=== PATIENT | male | born 1975 | race Caucasian/White ===

== ENCOUNTER 2018-06-08 07:45 | Outpatient (CLI) | payer BC ==
--- NOTE | 2018-06-08 10:22 | HP ---
DATE OF SERVICE: 06/08/2018 HISTORY OF PRESENT ILLNESS: Mr. Alexx Lopez is a very pleasant 43-year-old gentleman who pres ents to the Wound Center for evaluation of a wound of the right lateral plantar midfoot. The patient states that the ulceration has been present for approximately 1 month. He states that he is unsure as to what precipitated the development of the ulceration. The patient states he presented to [facility] last week with malaise. He states that at this time he was given 6-8 doses of IV antibiotic s. The patient states that plain films were obtained which showed no evidence of osteomyelitis. The patient is now taking doxycycline, ciprofloxacin and Flagyl as per Dr. Luis Sequeira. At the time o f the patient's visit at [facility], he was referred to the Wound Center for further evaluation a nd treatment. PAST MEDICAL HISTORY: Diabetes mellitus. PAST SURGICAL HISTORY: Negative. MEDICATIONS: 1. Metformin. 2. Tradjenta. 3. Tylenol. 4. Doxycycline. 5. Ciprofloxacin. 6. Flagyl. ALLERGIES: PENICILLIN. SOCIAL HISTORY: Negative for tobacco or ETOH use. FAMILY HISTORY: Significant for diabetes mellitus. The patient states that his father was diagnosed with diabetes mellitus. PHYSICAL EXAMINATION: VITAL SIGNS: Temperature 98.0, pulse 82, respirations 17, blood pressure 153/102. GENERAL: A 43-year-old gentleman sitting on chair in examination room in no acute distress. HEENT: Normocephalic, atraumatic. NECK: No nuchal rigidity. CHEST: Clear to auscultation. CARDIAC: Regular rate and rhythm. ABDOMEN: Soft. EXTREMITIES: An ulceration over the right lateral plantar foot is present which measures approximate ly 0.7 x 0.4 cm. Necrotic and nonviable tissue present within the wound margins was debrided with an excisional full-thickness debridement with the use of scissors. Callus desiccated tissue and underm ining associated with the wound were also eliminated with the use of scissors. No purulent drainage is associated with the wound. Erythema of the skin surrounding the wound is present. No maceration of the skin of the periwound is noted. A dorsalis pedis pulse and posterior tibial pulse are both pa lpable on the right. No significant edema of the right foot is present on exam today. NEUROLOGIC: Grossly nonfocal. ASSESSMENT AND PLAN: 1. Ulceration of plantar surface of right lateral midfoot as described above. Dressing changes of X eroform gauze, 4 x 4's, an ABD and Kerlix will be initiated today. These dressing changes are to be performed on a daily basis after cleansing and irrigation. Arrangements will also be made for MRI of the right foot to look for findings suggestive of osteomyelitis. The patient is to continue p.o. an tibiotics as previously prescribed. The importance of offloading has been discussed with the patient . He states he will obtain a knee scooter for proper offloading of the plantar surface of the right foot. I will see Mr. Lopez again in 1 week. The patient understands and is in agreement with the preceding treatment plan. 2. Diabetes mellitus. Accu-Cheks will be obtained at the time of the patient's clinic visits. The patient has been told that for optimal wound healing, his blood glucoses should remain below 150.
[2018-06-08] MEDS ORDERED: Sodium Chloride 0.9% 15 ML NEB ONE (15:54)
== END 2018-06-08 07:46 | disposition home or self-care (01) ==
LOC: WCC 07:45
PROVIDERS: ATTEND Family Medicine
DX: E11.621 Type 2 diabetes mellitus with foot ulcer (principal); L97.419 Non-pressure chronic ulcer of right heel and midfoot with unspecified severity
CPT/HCPCS: 11042; 36416; 99203; A4218; G0463

== ENCOUNTER 2018-06-15 08:11 | Outpatient (CLI) | payer BC ==
[2018-06-15] MEDS ORDERED: Sodium Chloride 0.9% 15 ML NEB ONE (08:59)
--- NOTE | 2018-06-15 09:20 | PRG ---
DATE OF SERVICE: 06/15/2018 HISTORY: Mr. Alexx Lopez is a very pleasant 43-year-old gentleman, who presents to the Wound Center for evaluation of a wound of the right lateral plantar midfoot. The patient stated at the conor e of his initial presentation to the Wound Center that the ulceration had been present for approximat deja 1 month. He stated that he was unsure as to what precipitated the development of the ulceration. The patient stated that he presented to [facility] approximately 1 week prior to being seen in the Wound Center with malaise. He stated that, at this time, he was given 6-8 doses of IV antibiotic s. The patient stated that plain films were obtained, which showed no evidence of osteomyelitis. Th e patient was placed on doxycycline, ciprofloxacin, and Flagyl as per Dr. Luis Sequeira, which he sta elías he has completed taking as prescribed. At the time of the patient's visit at [facility], he was referred to the Wound Center for further evaluation and treatment. PHYSICAL EXAMINATION: VITAL SIGNS: Temperature 97.6, pulse 89, respirations 16, blood pressure 157/95. Accu-Chek 274. EXTREMITIES: An ulceration over the right lateral plantar foot is present, which measures approximat deja 0.6 x 0.6 cm. Necrotic and nonviable tissue present within the wound margins was debrided with a n excisional full-thickness debridement with the use of scissors and a curette. Callus desiccated ti ssue and undermining associated with the wound were also eliminated with the use of scissors. No pur ulent drainage is associated with the wound. No maceration of the skin of the periwound is noted. N o significant edema of the right foot is present on exam today. ASSESSMENT AND PLAN: 1. Ulceration of plantar surface of right lateral midfoot as described above. Dressing changes of X eroform gauze, 4 x 4's, ABD, and Kerlix will be continued on a daily basis after cleansing and irriga tion. MRI of the right foot with and without contrast will be obtained to look for findings suggesti ve of osteomyelitis. The importance of offloading has again been discussed with the patient. He sta elías he will continue to use a knee scooter for proper offloading of the plantar surface of the right foot. I will see Mr. Lopez again in 2 weeks. The patient will contact the Wound Center in order t o obtain the results of his MRI examination, which will be obtained in 4 days. 2. Diabetes mellitus. The patient's Accu-Chek in clinic today is 274. The patient has been reminde d that, for optimal wound healing, his blood glucoses should remain below 150.
== END 2018-06-15 08:12 | disposition home or self-care (01) ==
LOC: WCC 08:11
PROVIDERS: ATTEND Family Medicine
DX: E11.621 Type 2 diabetes mellitus with foot ulcer (principal); L97.419 Non-pressure chronic ulcer of right heel and midfoot with unspecified severity
CPT/HCPCS: 11042; A4218

== ENCOUNTER 2018-06-19 12:40 | Outpatient (CLI) | payer BC ==
[~2018-06-19 12:40] MED LIST: Gadobenate Dimeglumine 529 MG/1 ML (20ML VIAL) ONE
--- NOTE | 2018-06-19 15:15 | MRI ---
RIGHT FOOT MRI WITH AND WITHOUT IV CONTRAST: History: 43-year-old male with history of foot ulcer on bottom of the foot with pain. FINDINGS: There appears to be a fairly superficial ulcer on the plantar aspect of the foot laterally overlying the region of the fifth metatarsal. There is some T2 hyperintensity within the intrinsic muscles of t he foot, particularly the digiti minimi myotendinous region, nonspecific. This can be a finding seen in diabetics and may be related to disuse or possibly some denervation change. No evidence for osteom yelitis. The visualized flexor, extensor, and peroneus tendons appear intact. Medial and lateral ashley ateral ligament complexes as well as the sinus tarsi and spring ligament regions are unremarkable. No talar dome osteochondral lesion. No significant abnormal bone marrow signal. IMPRESSION: Open wound on the plantar aspect of the foot somewhat overlying the vase of the fifth metatarsal magali on without evidence for associated abscess or osteomyelitis or other significant acute process. Nonsp ecific increased signal on T2 and STIR weighted sequences involving the intrinsic muscles of the foot . No evidence for other significant acute internal derangement. POS: ROBERTH
== END 2018-06-19 12:41 | disposition home or self-care (01) ==
LOC: SCSMRI 12:40
PROVIDERS: ATTEND Family Medicine
DX: E10.621 Type 1 diabetes mellitus with foot ulcer (principal)
CPT/HCPCS: A9579

== ENCOUNTER 2018-06-29 08:11 | Outpatient (CLI) | payer BC ==
--- NOTE | 2018-06-29 09:35 | PRG ---
DATE OF SERVICE: 06/29/2018 HISTORY: Mr. Alexx Lopez is a very pleasant 43-year-old gentleman who presents to the Wound C enter for evaluation of a wound of the right lateral plantar midfoot. The patient stated at the time of his initial presentation to the Wound Center that the ulceration had been present for approximate ly 1 month. He stated that he was unsure as to what precipitated the development of the ulceration. The patient stated that he presented to [facility] approximately 1 week prior to being seen in [facility] [place] with malaise. He stated that at this time he was given 6-8 doses of IV antibiotics. The patient stated that plain films were obtained which showed no evidence of osteomyelitis. The pa tient was placed on doxycycline, ciprofloxacin and Flagyl as per Dr. Luis Sequeira, which he stated t hat he completed taking as prescribed. At the time of the patient's visit at [facility] and Mr. Lopez was referred to the Wound Center for further evaluation and treatment. PHYSICAL EXAMINATION: VITAL SIGNS: Temperature 97.9, pulse 85, respirations 18, blood pressure 149/91. Accu-Chek 307. EXTREMITIES: An ulceration over the plantar surface of the right lateral foot is present which measu res approximately 0.5 x 0.6 cm. The dimensions of the wound at the time of the patient's last visit were approximately 0.6 x 0.6 cm. Necrotic and nonviable tissue present within the wound margins was debrided with an excisional full-thickness debridement with the use of a curette. Callus desiccated tissue and undermining associated with the wound were eliminated with the use of scissors. No purule nt drainage is associated with the wound. No erythema of the skin surrounding the wound is present. No maceration of the skin of the periwound is noted. No significant edema of the right foot is pres ent on exam today. ASSESSMENT AND PLAN: 1. Ulceration of plantar surface of right lateral midfoot as described above. Dressing changes of X eroform gauze will be discontinued. Dressing changes of Medihoney, 4 x 4s and an ABD and Kerlix will be initiated today. These dressing changes are to be performed on a daily basis after cleansing and irrigation. MRI of the right foot with and without contrast revealed no findings suggestive of oste omyelitis. The importance of offloading has again been discussed with the patient. He states he mariely l continue to use a knee scooter for proper offloading of the plantar surface of the right foot. I w ill see Mr. Lopez again in 2 weeks. 2. Diabetes mellitus. The patient's Accu-Chek in clinic today is 307. The patient has been reminde d that for optimal wound healing, his blood glucoses should remain below 150.
[2018-06-29] MEDS ORDERED: Sodium Chloride 0.9% 15 ML NEB ONE (18:00)
== END 2018-06-29 08:12 | disposition home or self-care (01) ==
LOC: WCC 08:11
PROVIDERS: ATTEND Family Medicine
DX: E11.621 Type 2 diabetes mellitus with foot ulcer (principal); L97.419 Non-pressure chronic ulcer of right heel and midfoot with unspecified severity
CPT/HCPCS: 11042; 36416; A4218

== ENCOUNTER 2018-07-13 07:37 | Outpatient (CLI) | payer BC ==
--- NOTE | 2018-07-13 10:28 | PRG ---
DATE OF SERVICE: 07/13/2018 HISTORY: Mr. lAexx Lopez is a very pleasant 43-year-old gentleman, who presents to the Wound Center for evaluation of a wound of the right lateral plantar midfoot. The patient stated at the time of his initial presentation to the Wound Center that the ulceration had been present for approximately 1 month. He stated that he was unsure as to what precipitated the development of the ulceration. The patient stated that he presented to the [facility] approximately 1 week prior to being seen in the Wound Center with malaise. He stated that at that time he was given 6 to 8 doses of IV antibiotics. The patient stated that plain films were obtained, which showed no evidence of osteomyelitis. The patient was placed on doxycycline, ciprofloxacin, and flagyl as per Dr. Luis Sequeira, which he stated that he completed taking as prescribed. At the time of the patient's visit at [facility], Mr. Lopez was referred to the Wound Center for further evaluation and treatment. PHYSICAL EXAMINATION: VITAL SIGNS: Temperature 97.9, pulse 81, respirations 17, and blood pressure 158/94. Accu-Chek 336. EXTREMITIES: An ulceration over the plantar surface of the right lateral foot is present, which measures approximately 1.2 x 1.0 cm. The dimensions of the wound at the time of the patient's last visit were approximately 0.5 x 0.6 cm. Necrotic and nonviable tissue present within the wound margins was debrided with an excisional full-thickness debridement with the use of scissors and a curette. Callus, desiccated tissue, and undermining associated with the wound were eliminated with the use of scissors. No purulent drainage is associated with the wound. No erythema of the skin surrounding the wound is present. No maceration of the skin of the periwound is noted. No significant edema of the right foot is present on exam today. ASSESSMENT AND PLAN: 1. Ulceration of plantar surface of right lateral midfoot as described above. Dressing changes of Medihoney, 4x4s, and Kerlix will be continued on a daily basis after cleansing and irrigation. ABDs will be utilized as needed at the time of dressing changes. MRI of the right foot with and without contrast will be obtained again to look for findings suggestive of osteomyelitis. The importance of offloading has again been discussed with the patient, and he states he will continue to use a knee scooter for proper offloading of the plantar surface of the right foot. Arrangements will also be made for the initiation of negative pressure therapy with dressing changes of the wound VAC 2 times per week here in the Wound Center. I will see Mr. Lopez again in one week. 2. Diabetes mellitus. The patient's Accu-Chek in clinic today is 336. The patient has been reminded that for optimal wound healing his blood glucoses should remain below 150. Job ID: [id number]
[2018-07-13] MEDS ORDERED: Sodium Chloride 0.9% 15 ML NEB ONE (11:11)
== END 2018-07-13 07:38 | disposition home or self-care (01) ==
LOC: WCC 07:37
PROVIDERS: ATTEND Family Medicine
DX: E11.621 Type 2 diabetes mellitus with foot ulcer (principal); L97.419 Non-pressure chronic ulcer of right heel and midfoot with unspecified severity
CPT/HCPCS: 36416; A4218

== ENCOUNTER 2018-07-20 07:37 | Outpatient (CLI) | payer BC ==
--- NOTE | 2018-07-20 09:31 | PRG ---
DATE OF SERVICE: 07/20/2018 HISTORY: Mr. Alexx Lopez is a very pleasant 43-year-old gentleman who presents to the Wound Center for evaluation of a wound of the plantar surface of the right lateral midfoot. The patient stated at the time of his initial presentation to the Wound Center that the ulceration had been present for approximately 1 month. He stated that he was unsure as to what precipitated the development of the ulceration. The patient stated that he presented to [facility] approximately 1 week prior to being seen in the Wound Center with malaise. He stated that at that time he was given 6 to 8 doses of IV antibiotics. The patient stated that plain films were obtained, which showed no evidence of osteomyelitis. The patient was placed on doxycycline, ciprofloxacin, and Flagyl as per Dr. Luis Sequeira, which he stated he completed taking as prescribed. At the time of the patient's visit at [facility], Mr. Lopez was referred to the Wound Center for further evaluation and treatment. The patient has been performing dressing changes of [facility] on a daily basis after cleansing and irrigation since his last visit. PHYSICAL EXAMINATION: VITAL SIGNS: Temperature 97.9, pulse 82, respirations 16, blood pressure 136/92. Accu-Chek 300. EXTREMITIES: An ulceration over the plantar surface of the right lateral foot is present which measures approximately 0.7 x 0.6 cm. The dimensions of the wound at the time of the patient's last visit were approximately 1.2 x 1.0 cm. Granulation tissue was present within the wound margins. Necrotic and nonviable tissue present within the wound margins was debrided with an excisional full-thickness debridement with the use of scissors and a curette. Callus desiccated tissue and undermining associated with the wound were eliminated with the use of scissors. No purulent drainage is associated with the wound. No erythema of the skin surrounding the wound is present. No maceration of the skin of the periwound is noted. No significant edema of the right foot is present on exam today. ASSESSMENT AND PLAN: 1. Ulceration of plantar surface of right lateral midfoot as described above. Negative pressure therapy will be initiated today. MRI of the right foot with and without contrast will be obtained again to look for findings suggestive of osteomyelitis. Again, the importance of offloading has been discussed with the patient and he states he will continue to utilize a knee scooter for proper offloading of the plantar surface of the right foot. I will see Mr. Lopez again in 1 week. 2. Diabetes mellitus. The patient's Accu-Chek in clinic today is 300. The patient has been reminded that for optimal wound healing his blood glucoses should remain below 150. Job ID: [id number]
== END 2018-07-20 07:38 | disposition home or self-care (01) ==
LOC: WCC 07:37
PROVIDERS: ATTEND Family Medicine
DX: E11.621 Type 2 diabetes mellitus with foot ulcer (principal); L97.419 Non-pressure chronic ulcer of right heel and midfoot with unspecified severity

== ENCOUNTER 2018-07-24 07:45 | Outpatient (CLI) | payer BC ==
[2018-07-24] MEDS ORDERED: Sodium Chloride 0.9% 15 ML NEB ONE (14:34)
== END 2018-07-24 07:46 | disposition home or self-care (01) ==
LOC: WCC 07:45
PROVIDERS: ATTEND Family Medicine
DX: E11.621 Type 2 diabetes mellitus with foot ulcer (principal); L97.419 Non-pressure chronic ulcer of right heel and midfoot with unspecified severity
CPT/HCPCS: 36416; 97605; A4218

== ENCOUNTER 2018-07-26 07:50 | Outpatient (CLI) | payer BC ==
[2018-07-26] MEDS ORDERED: Sodium Chloride 0.9% 15 ML NEB ONE (09:00)
--- NOTE | 2018-07-26 09:31 | PRG ---
DATE OF SERVICE: 07/26/2018 HISTORY: Mr. Alexx Lopez is a very pleasant 43-year-old gentleman, who presents to the Wound Center for evaluation of a wound at the plantar surface of the right lateral midfoot. The patient states that he missed his appointment for MRI of the right foot with and without contrast to look for findings suggestive of osteomyelitis. The patient is receiving negative pressure therapy with dressing changes of the wound VAC 2 times per week here in the Wound Center. The patient also continues to utilize his knee scooter for offloading of the right plantar wound. PHYSICAL EXAMINATION: VITAL SIGNS: Temperature 97.8, pulse 86, respirations 17, and blood pressure 142/85. Accu-Chek 303. EXTREMITIES: An ulceration over the plantar surface of the right lateral foot is present, which measures approximately 0.9 x 0.9 cm. Granulation tissue is present within the wound margins. Necrotic and nonviable tissue present within the wound margins, was debrided with an excisional full-thickness debridement with the use of a curette. No purulent drainage is associated with the wound. No erythema of the skin surrounding the wound is present. Maceration of the skin of the periwound is noted. A dorsalis pedis pulse and a posterior tibial pulse are both palpable on the right. No significant edema of the right foot is present on exam today. ASSESSMENT AND PLAN: 1. Ulceration of plantar surface of right lateral midfoot as described above. Negative pressure therapy will be continued with dressing changes of the wound VAC 2 times per week here in the Wound Center. MRI of the right foot with and without contrast will be obtained to look for findings suggestive of osteomyelitis. The patient states he will reschedule his appointment in imaging. The patient states he will continue to utilize his knee scooter for proper offloading of the plantar ulceration of the right foot. I will see Mr. Lopez again in 1 week. 2. Diabetes mellitus. The patient's Accu-Chek in clinic today is 303. The patient has been reminded that for optimal wound healing, his blood glucoses should remain below 150. Job ID: [id number]
== END 2018-07-26 07:51 | disposition home or self-care (01) ==
LOC: WCC 07:50
PROVIDERS: ATTEND Family Medicine
DX: E11.621 Type 2 diabetes mellitus with foot ulcer (principal); L97.419 Non-pressure chronic ulcer of right heel and midfoot with unspecified severity
CPT/HCPCS: 11042; 36416; A4218

== ENCOUNTER 2018-07-28 16:06 | Outpatient (CLI) | payer BC ==
[~2018-07-28 16:06] MED LIST changes: -Gadobenate Dimeglumine 529 MG/1 ML (20ML VIAL) ONE; +Sodium Chloride 0.9% 15 ML NEB ONE
== END 2018-07-28 16:07 | disposition home or self-care (01) ==
LOC: WCC 16:06
PROVIDERS: ATTEND Family Medicine
DX: E11.621 Type 2 diabetes mellitus with foot ulcer (principal); L97.419 Non-pressure chronic ulcer of right heel and midfoot with unspecified severity
CPT/HCPCS: 97605; A4218

== ENCOUNTER 2018-08-01 15:55 | Outpatient (CLI) | payer BC | END 2018-08-01 15:56 | disposition home or self-care (01) | LOC: WCC 15:55 | PROVIDERS: ATTEND Family Medicine | DX: E11.621 Type 2 diabetes mellitus with foot ulcer (principal); L97.419 Non-pressure chronic ulcer of right heel and midfoot with unspecified severity | CPT/HCPCS: 97605 ==

== ENCOUNTER 2018-08-03 08:09 | Outpatient (CLI) | payer BC ==
--- NOTE | 2018-08-03 11:15 | PRG ---
DATE OF SERVICE: 08/03/2018 HISTORY: Mr. Alexx Lopez is a very pleasant 43-year-old gentleman, who presents to the Wound Center for evaluation of a wound of the plantar surface of the right lateral midfoot. The patient states that MRI of the right foot with and without contrast to look for findings suggestive of osteomyelitis has been rescheduled for tomorrow. The patient is receiving negative-pressure therapy with dressing changes of the wound VAC 2 times per week here in the Wound Center. The patient also continues to utilize his knee scooter for offloading of the right plantar wound. PHYSICAL EXAMINATION: VITAL SIGNS: Temperature 97.8, pulse 77, respirations 18, blood pressure 141/95. Accu-Chek 314. EXTREMITIES: An ulceration over the plantar surface of the right lateral foot is present, which measures approximately 0.9 x 1.0 cm. Granulation tissue was present within the wound margins. Necrotic and nonviable tissue present within the wound margins was debrided with an excisional full-thickness debridement with the use of a curette. No purulent drainage is associated with the wound. No erythema of the skin surrounding the wound is present. Maceration of the skin of the periwound is noted. A dorsalis pedis pulse is palpable on the right. No significant edema of the right foot is present on exam today. ASSESSMENT AND PLAN: 1. Ulceration of plantar surface of right lateral midfoot as described above. Negative-pressure therapy will be continued with dressing changes of the wound VAC 2 times per week here in the Wound Center. MRI of the right foot with and without contrast to look for findings suggestive of osteomyelitis has been rescheduled for tomorrow. The patient states he will continue to utilize his knee scooter for proper offloading of the plantar ulceration of the right foot. I will see Mr. Lopez again in one week. 2. Diabetes mellitus. The patient's Accu-Chek in clinic today is 314. The patient has been reminded that for optimal wound healing, his blood glucoses should remain below 150. Job ID: [id number]
[2018-08-03] MEDS ORDERED: Sodium Chloride 0.9% 15 ML NEB ONE (15:00)
== END 2018-08-03 08:10 | disposition home or self-care (01) ==
LOC: WCC 08:09
PROVIDERS: ATTEND Family Medicine
DX: E11.621 Type 2 diabetes mellitus with foot ulcer (principal); L97.419 Non-pressure chronic ulcer of right heel and midfoot with unspecified severity
CPT/HCPCS: 11042; A4218

== ENCOUNTER 2018-08-07 07:46 | Outpatient (CLI) | payer BC | END 2018-08-07 07:47 | disposition home or self-care (01) | LOC: WCC 07:46 | PROVIDERS: ATTEND Family Medicine | DX: E11.621 Type 2 diabetes mellitus with foot ulcer (principal); L97.419 Non-pressure chronic ulcer of right heel and midfoot with unspecified severity | CPT/HCPCS: 97605 ==

== ENCOUNTER 2018-08-10 07:37 | Outpatient (CLI) | payer BC ==
--- NOTE | 2018-08-10 09:29 | PRG ---
DATE OF SERVICE: 08/10/2018 HISTORY: Mr. Alexx Lopez is a very pleasant 43-year-old gentleman, who presents to the Wound Center for evaluation of a wound of the plantar surface of the right lateral midfoot. The patient states that MRI of the right foot with and without contrast was not able to be obtained as planned because the MRI scanner was not working. He states that his MRI has been rescheduled for early next year. The patient has been receiving negative pressure therapy with dressing changes of the wound VAC 2 times per week here in the Wound Center. The patient continues to utilize his knee scooter for offloading of the right plantar wound. PHYSICAL EXAMINATION: VITAL SIGNS: Temperature 98.2, pulse 87, respirations 16, blood pressure 137/90. Accu-Chek 214. EXTREMITIES: The ulceration over the plantar surface of the right lateral foot measures approximately 0.9 x 0.5 cm. Granulation tissue was present within the wound margins. Necrotic and nonviable tissue present within the wound margins was debrided with an excisional full-thickness debridement with the use of a curette and scissors. No purulent drainage is associated with the wound. No erythema of the skin surrounding the wound is present. Maceration of the skin of the periwound is noted. No significant edema of the right foot is present on exam today. After copious irrigation of the wound bed with normal saline, MatriStem sheet in two layers was applied to the wound bed of the ulceration. The ulceration was then dressed with Mepitel and the GranuFoam of the wound VAC. ASSESSMENT AND PLAN: 1. Ulceration of plantar surface of right lateral midfoot as described above. Negative-pressure therapy will be continued with dressing changes of the wound VAC 2 times per week here in the Wound Center. MRI of the right foot with and without contrast to look for findings suggestive of osteomyelitis has been rescheduled for early next year. The patient states he will continue to utilize his knee scooter for proper offloading of the plantar ulceration of the right foot. The patient will return to the Wound Center for two dressing changes next week. I will see Mr. Lopez again in two weeks. 2. Diabetes mellitus. The patient's Accu-Chek in clinic today is 214. The patient has been reminded that for optimal wound healing, his blood glucoses should remain below 150. Job ID: [id number]
[2018-08-10] MEDS ORDERED: Sodium Chloride 0.9% 15 ML NEB ONE (15:00)
== END 2018-08-10 07:38 | disposition home or self-care (01) ==
LOC: WCC 07:37
PROVIDERS: ATTEND Family Medicine
DX: E11.621 Type 2 diabetes mellitus with foot ulcer (principal); L97.519 Non-pressure chronic ulcer of other part of right foot with unspecified severity
CPT/HCPCS: A4218; C5275; Q4166-KX-JC

== ENCOUNTER 2018-08-10 09:12 | Outpatient (CLI) | payer BC ==
--- NOTE | 2018-08-10 10:39 | RAD ---
LEFT FOOT 3 VIEWS: Date: 08/10/18 HISTORY: Left foot pain. FINDINGS/IMPRESSION: There is an old fracture involving the base of the fifth metatarsal. There is a questionable lucency in the head of the proximal phalanx of the fourth digit, which is likely artifactual, less likely fra cture. Clinical correlation is recommended. POS: OFF
== END 2018-08-10 09:13 | disposition home or self-care (01) ==
LOC: RAD 09:12
PROVIDERS: ATTEND Nurse Practitioner Family
DX: M79.672 Pain in left foot (principal)

== ENCOUNTER 2018-08-14 07:43 | Outpatient (CLI) | payer BC ==
[2018-08-14] MEDS ORDERED: Sodium Chloride 0.9% 15 ML NEB ONE (15:00)
== END 2018-08-14 07:44 | disposition home or self-care (01) ==
LOC: WCC 07:43
PROVIDERS: ATTEND Family Medicine
DX: E11.621 Type 2 diabetes mellitus with foot ulcer (principal); L97.519 Non-pressure chronic ulcer of other part of right foot with unspecified severity
CPT/HCPCS: 36416; 97605; A4218

== ENCOUNTER 2018-08-17 07:44 | Outpatient (CLI) | payer BC ==
[2018-08-17] MEDS ORDERED: Sodium Chloride 0.9% 15 ML NEB ONE (15:00)
== END 2018-08-17 07:45 | disposition home or self-care (01) ==
LOC: WCC 07:44
PROVIDERS: ATTEND Family Medicine
DX: E11.621 Type 2 diabetes mellitus with foot ulcer (principal); L97.419 Non-pressure chronic ulcer of right heel and midfoot with unspecified severity
CPT/HCPCS: 36416; 97605; A4218

== ENCOUNTER 2018-08-18 07:50 | Outpatient (CLI) | payer BC ==
--- NOTE | 2018-08-18 11:19 | MRI ---
MRI RIGHT FOOT WITH AND WITHOUT CONTRAST: Date: 08/18/18 HISTORY: Osteomyelitis. Pain. COMPARISON: Foot MRI dated 06/19/18. FINDINGS: Multiplanar, multisequence MRI of the right foot was performed prior to and after the intravenous adm inistration of contrast. There is a plantar ulcer at the level of the fifth metatarsal base with an o pen wound. There is some peripheral enhancement of the granulation tissue without a drainable abscess . The wound extends near the lateral fascia and abductor digiti minimi muscle without abnormal intram uscular enhancement. Since the comparison examination, the soft tissue overlying the ulcer has decreased and the ulceratio n is slightly deepened. IMPRESSION: Interval deepening of the ulcer of the fifth metatarsal base without osteomyelitis. No drainable flui d collection or pyomyositis. POS: ROBERTH
== END 2018-08-18 07:51 | disposition home or self-care (01) ==
LOC: SCSMRI 07:50
PROVIDERS: ATTEND Family Medicine
DX: E10.621 Type 1 diabetes mellitus with foot ulcer (principal); L97.519 Non-pressure chronic ulcer of other part of right foot with unspecified severity

== ENCOUNTER 2018-08-21 07:47 | Outpatient (CLI) | payer BC ==
--- NOTE | 2018-08-21 09:05 | PRG ---
DATE OF SERVICE: HISTORY: Mr. Alexx Lopez is a very pleasant 43-year-old gentleman, who presents to the [facility] for evaluation of a wound of the plantar surface of the right lateral midfoot. MRI obtained on 08/18/2018, with and without contrast revealed no osteomyelitis or drainable fluid collection or pyomyositis. The patient is receiving negative pressure therapy in conjunction with MatriStem sheet. The patient continue to utilize his knee scooter for offloading of the right plantar wound. PHYSICAL EXAMINATION: VITAL SIGNS: Temperature 98.2, pulse 92, respirations 16, blood pressure 137/92. Accu-Chek 224. EXTREMITIES: The ulceration over the plantar surface of the right lateral foot measures approximately 0.6 x 0.6 cm. Granulation tissue is present within the wound margins. No purulent drainage is associated with the wound. Erythema of the skin surrounding the wound is present and appears to be secondary to irritation from the drape applied with the wound VAC. Maceration of the skin of the periwound is also noted. No significant edema of the right foot is present on exam today. After copious irrigation of the wound bed with normal saline, MatriStem sheet was applied to the wound bed of the ulceration. Steri-Strips with Mastisol were utilized to secure the MatriStem sheet to the plantar surface of the right foot. The ulceration was then dressed with Mepitel, ABD, Kerlix, and an Kvng bandage. ASSESSMENT AND PLAN: 1. Ulceration of plantar surface of right lateral midfoot as described above. Negative pressure therapy will be discontinued today. MatriStem sheet was applied to the wound bed of the ulceration. As stated above, MRI of the right foot obtained on 08/18/2018, showed no evidence of osteomyelitis. The patient has been asked to continue to utilize his knee scooter for proper offloading of the plantar ulceration of the right foot. I will see Mr. Lopez again in one week. 2. Diabetes mellitus. The patient's Accu-Chek in clinic today is 224. The patient has been reminded that for optimal wound healing, his blood glucoses should remain below 150. Job ID: [id number]
[2018-08-21] MEDS ORDERED: Sodium Chloride 0.9% 15 ML NEB ONE (11:11)
[2018-08-21] MEDS ORDERED: Lidocaine 2% PF 100 mg/5 ml Syringe ONE (11:11)
== END 2018-08-21 07:48 | disposition home or self-care (01) ==
LOC: WCC 07:47
PROVIDERS: ATTEND Family Medicine
DX: E11.621 Type 2 diabetes mellitus with foot ulcer (principal); L97.419 Non-pressure chronic ulcer of right heel and midfoot with unspecified severity
CPT/HCPCS: A4218; C5275; J2001; Q4166-KX-JC

== ENCOUNTER 2018-08-28 08:16 | Outpatient (CLI) | payer BC ==
--- NOTE | 2018-08-28 08:57 | PRG ---
DATE OF SERVICE: 08/28/2018 HISTORY: Mr. Alexx Lopez is a very pleasant 43-year-old gentleman who presents to the Wound Center for evaluation of a wound of the plantar surface of the right lateral midfoot. MRI obtained on 08/18/2018, with and without contrast revealed no osteomyelitis or drainable fluid collection or pyomyositis. The patient is presently receiving treatment with MatriStem sheet. The patient continues to utilize his knee scooter for offloading of the right plantar wound. Negative pressure therapy was discontinued at the time of the patient's last visit. PHYSICAL EXAMINATION: VITAL SIGNS: Temperature 97.9, pulse 90, respirations 19, and blood pressure 142/95. Accu-Chek 254. EXTREMITIES: The ulceration over the plantar surface of the right lateral foot measures approximately 0.3 x 0.5 cm. The depth of the wound is approximately 1 cm. Granulation tissue is present within the wound margins. No purulent drainage was associated with the wound. No erythema of the skin surrounding the wound is present. No maceration of the skin of the periwound was noted. No significant edema of the right foot is present on exam today. After copious irrigation of the wound bed with normal saline, MatriStem sheet was applied to the wound bed of the ulceration. Steri-Strips and Mastisol were used to secure the MatriStem sheet to the plantar surface of the right foot. The ulceration was then dressed with Adaptic, ABD, Kerlix, and an Kvng bandage. ASSESSMENT AND PLAN: 1. Ulceration of plantar surface of right lateral midfoot as described above. MatriStem sheet was applied to the wound bed of the ulceration today as stated above. MRI of the right foot obtained on 08/18/2018, showed no evidence of osteomyelitis. The patient has been asked to continue to utilize his knee scooter for proper offloading of the plantar ulceration of the right foot. I will see Mr. Lopez again in 1 week. 2. Diabetes mellitus. The patient's Accu-Chek in clinic today is 254. The patient has been reminded that for optimal wound healing, blood glucoses should remain below 150. Job ID: [id number]
[2018-08-28] MEDS ORDERED: Sodium Chloride 0.9% 15 ML NEB ONE (13:53)
== END 2018-08-28 08:17 | disposition home or self-care (01) ==
LOC: WCC 08:16
PROVIDERS: ATTEND Family Medicine
DX: E11.621 Type 2 diabetes mellitus with foot ulcer (principal); L97.419 Non-pressure chronic ulcer of right heel and midfoot with unspecified severity
CPT/HCPCS: 97605; A4218; C5275; Q4166-KX-JC

== ENCOUNTER 2018-09-04 07:50 | Outpatient (CLI) | payer BC ==
--- NOTE | 2018-09-04 10:05 | PRG ---
DATE OF SERVICE: 09/04/2018 HISTORY: Mr. Alexx Lopez is a very pleasant 43-year-old gentleman, who presents to the Wound Center for evaluation of a wound of the plantar surface of the right lateral midfoot. MRI obtained on 08/18/2018, with and without contrast revealed no osteomyelitis or drainable fluid collection or pyomyositis. The patient is currently receiving treatment with MatriStem sheet. The patient continues to utilize his knee scooter for offloading of the right plantar wound. Negative pressure therapy was discontinued at the time of the patient's visit on 08/21/2018. PHYSICAL EXAMINATION: VITAL SIGNS: Temperature 98.1, pulse 89, and blood pressure 132/86. Accu-Chek 207. EXTREMITIES: The ulceration over the plantar surface of the right lateral foot measures approximately 0.4 x 0.4 cm. Granulation tissue is present within the wound margins. No purulent drainage is associated with the wound. No erythema of the skin surrounding the wound is appreciated. No maceration of the skin of the periwound is noted. No significant edema of the right foot is present on exam today. After copious irrigation of the wound bed with normal saline, MatriStem sheet was applied to the wound bed of the ulceration. Steri-Strips and Mastisol were used to secure the MatriStem sheet to the plantar surface of the right foot. The ulceration was then dressed with Adaptic, ABD, Kerlix, and an Kvng bandage. ASSESSMENT AND PLAN: 1. Ulceration of plantar surface of right lateral midfoot as described above. MatriStem sheet was applied to the wound bed of the ulceration today as stated above. MRI of the right foot obtained on 08/18/2018, showed no evidence of osteomyelitis. The patient has been asked to continue to utilize his knee scooter for proper offloading of the plantar ulceration of the right foot. I will see Mr. Lopez again in 1 week. 2. Diabetes mellitus. The patient's Accu-Chek in clinic today is 207. The patient has been reminded that for optimal wound healing, his blood glucoses should remain below 150. Job ID: [id number]
[2018-09-04] MEDS ORDERED: Sodium Chloride 0.9% 15 ML NEB ONE (11:11)
== END 2018-09-04 07:51 | disposition home or self-care (01) ==
LOC: WCC 07:50
PROVIDERS: ATTEND Family Medicine
DX: E11.621 Type 2 diabetes mellitus with foot ulcer (principal); L97.419 Non-pressure chronic ulcer of right heel and midfoot with unspecified severity
CPT/HCPCS: A4218; C5275; Q4166-KX-JC

== ENCOUNTER 2018-09-11 07:41 | Outpatient (CLI) | payer BC ==
--- NOTE | 2018-09-11 08:50 | PRG ---
DATE OF SERVICE: 09/11/2018 HISTORY: Mr. Alexx Lopez is a very pleasant 43-year-old, who presents to the Wound Center for evaluation of a wound of the plantar surface of the right lateral midfoot. MRI obtained on 08/18/2018, with and without contrast revealed no osteomyelitis or drainable fluid collection or pyomyositis. The patient is presently receiving treatment with MatriStem sheet. The patient continues to utilize his knee scooter for offloading of the right plantar wound. Negative pressure therapy was discontinued at the time of the patient's visit on 08/21/2018. PHYSICAL EXAMINATION: VITAL SIGNS: Temperature 98.1, pulse 100, respirations 19, blood pressure 129/83. Accu-Chek 170. EXTREMITIES: The ulceration over the plantar surface of the right lateral foot measures approximately 0.4 x 0.2 cm. Granulation tissue is present within the wound margins. No purulent drainage is associated with the wound. The depth of the wound is approximately 1.5 cm. No erythema of the skin surrounding the wound is appreciated. Erythema of the dorsum of the right lateral foot is, however, present on exam today. No maceration of the skin of the periwound is noted. No significant edema of the right foot is present on exam today. ASSESSMENT AND PLAN: 1. Ulceration of plantar surface of right lateral midfoot as described above. MRI of the right foot obtained on 08/18/2018, showed no evidence of osteomyelitis. In view of the erythema of the dorsum of the right lateral foot, MRI of the right foot will be obtained again to look for findings suggestive of osteomyelitis. The patient also reports pain of the right lateral foot. The patient has been asked to continue to utilize his knee scooter for proper offloading of the plantar ulceration of the right foot. The patient is to perform dressing changes of iodoform gauze and ABD, Kerlix and an Kvng bandage on a daily basis after cleansing and irrigation. I will see Mr. Lopez again after MRI of the right foot has been obtained. 2. Diabetes mellitus. The patient's Accu-Chek in clinic today is 170. The patient has been reminded that for optimal wound healing, his blood glucoses should remain below 150. Job ID: [id number]
[2018-09-11] MEDS ORDERED: Sodium Chloride 0.9% 15 ML NEB ONE (15:00)
== END 2018-09-11 07:42 | disposition home or self-care (01) ==
LOC: WCC 07:41
PROVIDERS: ATTEND Family Medicine
DX: E11.621 Type 2 diabetes mellitus with foot ulcer (principal); L97.419 Non-pressure chronic ulcer of right heel and midfoot with unspecified severity
CPT/HCPCS: 97602; A4218

== ENCOUNTER 2018-09-16 14:34 | Inpatient (IN) | payer BC ==
[~2018-09-16 14:34] MED LIST changes: +Heparin 1,000 UNITS/ML VIAL ONE; -Sodium Chloride 0.9% 15 ML NEB ONE
[2018-09-16] MEDS ORDERED: Acetaminophen 500 MG TAB ONE (14:58)
[2018-09-16 15:18] LABS: #Lymphocytes 1.2 thou/uL (1.20-3.40); #Neutrophils 12.4 thou/uL (1.40-6.50); %Basophils 0.3 % (0.0-1.0); %Eosinophils 0.3 % (0.0-10.0); %Lymphocytes 8.1 % (21.0-51.0); %Monocytes 6.9 % (0.0-10.0); %Neutrophils 84.4 % (42.0-75.0); Hemoglobin 14.8 g/dL (14.0-18.0); Mean Corpuscular HGB CONC 33.8 g/dL (32.0-36.0); Mean Corpuscular Hemoglobin 30.6 pg (27.0-31.0); Mean Corpuscular Volume 90.5 fL (78.0-98.0); Mean Platelet Volume 9.1 fL (7.4-10.4); Platelet Count 288 thou/uL (130-400); RBC Distribution Width 11.5 % (11.5-14.5); Red Blood Cell (RBC) Count 4.85 mill/uL (4.70-6.10); White Blood Cell (WBC) Count 14.7 thou/uL (4.8-10.8)
--- NOTE | 2018-09-16 15:19 | RAD ---
CHEST 1 VIEW: Date: 09/16/18 HISTORY: Chills, fever, cough. FINDINGS: Heart size and mediastinum are within normal limits. Lungs are clear of infiltrates. There are no bon y findings. IMPRESSION: No active intrathoracic disease. POS: [facility]
--- NOTE | 2018-09-16 15:20 | RAD ---
RIGHT FOOT 3 VIEWS: Date: 09/16/18 HISTORY: Foot wound. FINDINGS: Bony mineralization appears normal. No signs of fracture. I do not appreciate any plain film evidence for osteomyelitis. IMPRESSION: No evidence of osteomyelitis. Soft tissue wound is seen along the lateral side of the foot near the b ase of the fifth metatarsal. POS: [facility]
[2018-09-16 15:34] LABS: ALT (SGPT) 32 U/L (8-55); AST (SGOT) 22 U/L (5-34); Albumin 4.4 g/dL (3.5-5.0); Alkaline Phosphatase 110 U/L (40-150); Anion Gap 13 mmol/L (10-20); BUN (Urea Nitrogen) 27 mg/dL (8.9-20.6); Bilirubin, Total 1.9 mg/dL (0.2-1.2); CK (CPK) 60 U/L (30-200); Calc. Creatinine Clearance 0 mL/min (70-130); Calcium 9.8 mg/dL (7.8-10.44); Carbon Dioxide 28 mmol/L (22-29); Chloride 100 mmol/L (98-107); Estimated GFR-MDRD 59; Globulin 3.7 g/dL (2.4-3.5); Glucose 262 mg/dL (70-105); Potassium 4.1 mmol/L (3.5-5.1); Protein, Total 8.1 g/dL (6.0-8.3); Sodium 137 mmol/L (136-145)
[2018-09-16 16:28] LABS: Bilirubin Negative (Negative); Blood, Urine Negative (Negative); Clarity CLEAR (Clear); Glucose, Urine (Dipstick) 250 mg/dL (Negative); Leukocyte Negative (Negative); Nitrite Negative (Negative); Protein, Urine (Dipstick) Trace mg/dL (Neg-Trace); Specific Gravity, Urine 1.023 (1.002-1.036); Urobilinogen 0.2 mg/dL (0.2-1.0); pH, Urine 5.5 (5.0-9.0)
[2018-09-16] MEDS ORDERED: Clindamycin/D5W 600 mg/50 ml Premix Bag ONE (16:37)
[2018-09-16] MEDS ORDERED: Morphine 4 MG/ML VIAL ONE (16:37)
[2018-09-16] MEDS ORDERED: Ondansetron PF 4 MG/2 ML Vial ONE (16:37)
[2018-09-16] MEDS ORDERED: Ondansetron PF 4 MG/2 ML Vial IVP PRN (18:09)
[2018-09-16] MEDS ORDERED: Ondansetron ODT 4 MG TAB PO PRN (18:10)
[2018-09-16 19:05] VITALS: BMI 28.1
[2018-09-16] MEDS: Sodium Chloride 0.9% 1,000 ML IV SCH (21:31)
[2018-09-16] MEDS ORDERED: Dextrose 50% Abboject 50 ML SYRINGE IVP PRN (21:38)
[2018-09-16] MEDS ORDERED: Dextrose 5% in Water 1,000 ML IV PRN (21:38)
[2018-09-16] MEDS ORDERED: VANCOMYCIN IVPB PRN (21:40)
[2018-09-16] MEDS ORDERED: Vancomycin HCl 1 GM in Premix Bag 1 BAG IVPB SCH (21:45)
[2018-09-16] MEDS ORDERED: Clindamycin/D5W 600 MG in Premix Bag 1 BAG IVPB SCH (22:00)
[2018-09-16] MEDS: Cyclobenzaprine 10 MG TAB PO PRN (22:06)
[2018-09-16] MEDS: Ibuprofen 800 MG TAB PO PRN (22:06)
[2018-09-17] MEDS: Clindamycin/D5W 600 MG in Premix Bag 1 BAG IVPB SCH ×4 (01:46→20:56)
[2018-09-17] MEDS ORDERED: Vancomycin HCl 1 GM in Premix Bag 1 BAG IVPB SCH (04:00)
[2018-09-17] MEDS: Insulin Regular 300 UNITS/3 ML VIAL SC PRN (05:51)
[2018-09-17] MEDS: Acetaminophen 325 MG TAB PO PRN ×2 (05:51→12:19)
[2018-09-17] MEDS: Ibuprofen 800 MG TAB PO PRN ×2 (08:58→18:32)
[2018-09-17] MEDS: Vancomycin HCl 1.5 GM in Sodium Chloride 0.9% 250 ML 300 ML IVPB SCH ×2 (08:58→22:14)
[2018-09-17] MEDS: Sodium Chloride 0.9% 1,000 ML IV SCH ×3 (08:58→17:28)
[2018-09-17] MEDS: metFORMIN 500 MG TAB PO SCH ×2 (08:59→17:28)
[2018-09-17] MEDS: Alogliptin 25 MG TAB PO SCH ×2 (08:59→17:28)
[2018-09-17] MEDS: Nitroglycerin 0.4 MG TAB (25 Tab Bottle) ONE ×2 (20:09→20:14)
[2018-09-17 20:26] LABS: #Eosinphils 0.1 thou/uL (0.0-0.7); #Lymphocytes 1.5 thou/uL (1.20-3.40); #Monocytes 0.8 thou/uL (0.11-0.59); #Neutrophils 7.1 thou/uL (1.40-6.50); %Basophils 0.3 % (0.0-1.0); %Lymphocytes 15.3 % (21.0-51.0); %Monocytes 8.7 % (0.0-10.0); %Neutrophils 74.7 % (42.0-75.0); Hemoglobin 13.3 g/dL (14.0-18.0); Mean Corpuscular HGB CONC 33.9 g/dL (32.0-36.0); Mean Corpuscular Hemoglobin 30.7 pg (27.0-31.0); Mean Corpuscular Volume 90.5 fL (78.0-98.0); Mean Platelet Volume 9.1 fL (7.4-10.4); Platelet Count 239 thou/uL (130-400); RBC Distribution Width 11.3 % (11.5-14.5); Red Blood Cell (RBC) Count 4.33 mill/uL (4.70-6.10); White Blood Cell (WBC) Count 9.5 thou/uL (4.8-10.8)
[2018-09-17] MEDS: Acetaminophen/Codeine 30-300mg Tablet PO PRN (20:35)
[2018-09-17 20:43] LABS: Lactic Acid 1.4 mmol/L (0.5-2.2)
[2018-09-17 20:47] LABS: ALT (SGPT) 44 U/L (8-55); AST (SGOT) 38 U/L (5-34); Albumin 3.6 g/dL (3.5-5.0); Alkaline Phosphatase 112 U/L (40-150); Anion Gap 14 mmol/L (10-20); BUN (Urea Nitrogen) 13 mg/dL (8.9-20.6); Bilirubin, Total 1.4 mg/dL (0.2-1.2); Calc. Creatinine Clearance 177 mL/min (70-130); Carbon Dioxide 23 mmol/L (22-29); Chloride 103 mmol/L (98-107); Estimated GFR-MDRD Greater than 90; Globulin 3.1 g/dL (2.4-3.5); Glucose 151 mg/dL (70-105); Potassium 4.2 mmol/L (3.5-5.1); Protein, Total 6.7 g/dL (6.0-8.3); Sodium 136 mmol/L (136-145)
[2018-09-17] MEDS: Ibuprofen 800 MG TAB PO SCH (20:54)
[2018-09-17] MEDS: HORIZANT PO SCH (20:55)
[2018-09-17] MEDS: Cyclobenzaprine 10 MG TAB PO PRN (20:56)
[2018-09-17] MEDS: Zolpidem Tartrate 5 MG TAB PO SCH (20:56)
--- NOTE | 2018-09-17 22:47 | HP ---
CHIEF COMPLAINT: High fever. HISTORY OF PRESENT ILLNESS: The patient is a 43-year-old male who for the last week has been having increased discomfort in the peripheral margins of his right foot. He has been going to wound care since March to care for nonhealing ulcer, but in the last week, he has begun to have fever, chills, and body aches. No vomiting or diarrhea. When presenting to the wound care with the symptoms, they noted an infection developing peripherally to the ulcer and gave him 1 IV injection of Rocephin and oral antibiotics. As he presents to the ER today, it is obvious his outpatient treatment is failed and that he has redness circumferentially to the ulcer while the ulcer itself looks healthy that held the normal skin in the foot is red, hot, tender, and there are red streaks going up his leg at the time of admission. To be admitted for cellulitis and diabetic nonhealing foot ulcer. PAST MEDICAL HISTORY: Significant for type 2 diabetes. PAST SURGICAL HISTORY: He has had no surgeries. PSYCHIATRIC HISTORY: He has no psychiatric history. SOCIAL HISTORY: He is not a smoker. He drinks alcohol socially and rarely and does not use illicit drugs. ALLERGIES: HE HAS ALLERGIES TO PENICILLIN. MEDICATIONS ON ADMISSION: Include Janumet that he is supposed to take b.i.d., Horizant 300 mg once a day at bedtime, and Trulicity 1.5 mg subcu weekly. REVIEW OF SYSTEMS: GENERAL: At the time of admission, he is complaining of fever, malaise, weakness constitutionally. HEENT: Denies sores or drainage from eyes, ears, and nose. Pharynx is mildly dry, but no lesions. CHEST: He denies dyspnea or shortness of breath, but he does have a cough. CARDIOVASCULAR: Denies palpitations or chest pain. GI: Denies nausea, vomiting, or diarrhea. : Denies any dysuria or blood in urine or stool. MUSCULOSKELETAL: He has the right leg erythema and tenderness, otherwise there are no other specific musculoskeletal complaints or joint pain. SKIN: With the aforementioned right foot nonhealing diabetic ulcer, but otherwise has no new rashes or lesions, besides red streaks going up that leg. NEUROLOGIC: He denies any headaches or trouble with mentation, paresthesias or areas of anesthesia. HEMOLYTIC/LYMPH: He denies any swollen nodes, areas of ecchymosis or edema. PHYSICAL EXAMINATION: At time of admission, VITAL SIGNS: Blood pressure is 115/80, pulse 124, respirations 24, temperature 100.5, and O2 saturation 94% on room air. GENERAL: Well developed, well nourished, alert, male. HEENT: Normocephalic and atraumatic. Pupils are equal, round, and reactive to light. Extraocular muscles are intact. TMs, nares, pharynx are clear. NECK: Supple. Trachea midline. No mass. CHEST: Clear to auscultation. HEART: Regular rate and rhythm without murmur. ABDOMEN: Soft and nontender without organomegaly. : Deferred. EXTREMITIES: With right lower extremity bandage over open sore with surrounding heat erythema, tenderness going up the leg. EXTREMITIES: Without clubbing, cyanosis, or edema. Normal range of motion is present and symmetrical muscular tone development noted. SKIN: With the aforementioned right lower leg heat erythema, but otherwise no other suspicious lesions. BACK: Without lesions. Normal curvature. NEUROLOGIC: Cranial nerves are intact. Sensory exam is grossly intact. Gait and cerebral function are untested. His mental status is nonfocal. LABORATORY DATA: On admission shows an elevated WBC of 14,000 and a left shift. Blood cultures were returning a staph and a preliminary reading. ASSESSMENT: 1. Staphylococcal cellulitis of the right foot. 2. Nonhealing diabetic ulcer. 3. Type 2 diabetes. PLAN: Will be to continue IV antibiotics, i.e., Cleocin and vancomycin. Serial re-evaluation will involve Infectious Disease if there is any failure to respond. Also we will continue to use wound care to help assist healing of that foot. He will be given antipyretics for temperature control and fever management. Job ID: [id number]
[2018-09-18] MEDS: Sodium Chloride 0.9% 1,000 ML IV SCH ×3 (00:54→17:45)
[2018-09-18] MEDS: Clindamycin/D5W 600 MG in Premix Bag 1 BAG IVPB SCH ×3 (05:05→21:26)
[2018-09-18 05:08] LABS: #Eosinphils 0.2 thou/uL (0.0-0.7); #Neutrophils 6.9 thou/uL (1.40-6.50); %Basophils 0.4 % (0.0-1.0); %Eosinophils 1.8 % (0.0-10.0); %Lymphocytes 19.8 % (21.0-51.0); %Monocytes 9.4 % (0.0-10.0); %Neutrophils 68.6 % (42.0-75.0); Hemoglobin 12.3 g/dL (14.0-18.0); Mean Corpuscular HGB CONC 34.2 g/dL (32.0-36.0); Mean Corpuscular Hemoglobin 31.4 pg (27.0-31.0); Mean Corpuscular Volume 91.9 fL (78.0-98.0); Mean Platelet Volume 9.4 fL (7.4-10.4); Platelet Count 241 thou/uL (130-400); RBC Distribution Width 11.4 % (11.5-14.5); Red Blood Cell (RBC) Count 3.91 mill/uL (4.70-6.10); White Blood Cell (WBC) Count 10.1 thou/uL (4.8-10.8)
[2018-09-18 05:28] LABS: Anion Gap 13 mmol/L (10-20); BUN (Urea Nitrogen) 15 mg/dL (8.9-20.6); Calc. Creatinine Clearance 160 mL/min (70-130); Calcium 8.6 mg/dL (7.8-10.44); Carbon Dioxide 26 mmol/L (22-29); Chloride 103 mmol/L (98-107); Estimated GFR-MDRD Greater than 90; Glucose 170 mg/dL (70-105); Potassium 3.9 mmol/L (3.5-5.1); Sodium 138 mmol/L (136-145)
[2018-09-18] MEDS: Insulin Regular 300 UNITS/3 ML VIAL SC PRN (06:03)
[2018-09-18] MEDS: metFORMIN 500 MG TAB PO SCH ×2 (07:50→17:42)
[2018-09-18] MEDS: Alogliptin 25 MG TAB PO SCH ×2 (07:50→17:42)
[2018-09-18] MEDS: Ibuprofen 800 MG TAB PO SCH ×4 (07:52→21:26)
--- NOTE | 2018-09-18 08:57 | CON ---
DATE OF CONSULTATION: HISTORY OF PRESENT ILLNESS: He is a 43-year-old gentleman who has been feeling poorly for the last week, in fact he has had fever, chills, pain in the right leg for extended period of time. He is receiving the wound care here locally. He has diabetes and has concern that he has cellulitis involving his dorsum of his right foot. Yesterday, he was on the floor when he developed some right-sided chest pain, which was stabbing, worse with deep breathing and coughing. He was transferred to the ICU for further monitoring. This morning, he said he is feeling better. Denies any pain or discomfort. PAST MEDICAL HISTORY: Pertinent for longstanding history of diabetes. No history of hypertension. PAST SURGICAL HISTORY: None. HABITS: Alcohol, none. Tobacco, none. 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 is at the bedside, gives excellent history. MEDICATIONS: List of medicine from home includes, 1. Gabapentin. 2. Trulicity 1.5 every 7 days. 3. Metformin. 4. Janumet two tablets twice a day. ALLERGIES: PENICILLIN. REVIEW OF SYSTEMS: Otherwise negative. PHYSICAL EXAMINATION: VITAL SIGNS: Saturations are 96% on room air, blood pressure 139/93, pulse , respirations 18. CHEST: Decreased breath sounds. No wheezing. CARDIAC: Normal S1, S2. No gallops . LABORATORY DATA: His lytes were normal. His blood sugar was 167. White count [id number]. He had a chest x-ray taken two days ago showed no acute infiltrates. IMPRESSION: Right-sided pleural chest pain, diabetes, wound infection. PLAN: Chest x-ray is being ordered since he has had pleuritic chest pain on the last 24 hours. Pulmonary valenzuela appears to be stable enough to be transferred out of the ICU. I would consider obtaining Infectious Disease consult. Supportive care. Pulmonary will follow over the next 24 hours to ensure his chest pain is resolved. I agree with antibiotics. Consultation note, 70 minutes, 50% direct patient care. Job ID: [id number]
[2018-09-18 09:39] LABS: Vancomycin, Trough 9.9 ug/mL
[2018-09-18] MEDS: Acetaminophen/Codeine 30-300mg Tablet PO PRN (10:00)
--- NOTE | 2018-09-18 10:10 | RAD ---
CHEST 1 VIEW: HISTORY: Dyspnea. COMPARISON: 09/16/2018 exam. FINDINGS: Heart size is within normal limits. Mediastinal structures appear unremarkable. There is elevation of the right hemidiaphragm. There is linear atelectasis in the right lung base. IMPRESSION: Atelectatic change in the right lung base. POS: [facility]
[2018-09-18] MEDS: Vancomycin HCl 1.5 GM in Sodium Chloride 0.9% 250 ML 300 ML IVPB SCH (11:17)
--- NOTE | 2018-09-18 13:44 | PQF ---
ELMER HUTTON MICHAEL E MD [id number] [address] [place] [address] [id number] CLINICAL DOCUMENTATION IMPROVEMENT CLARIFICATION FORM: ICD-10 Updated PLEASE DO AN ADDENDUM TO THE PROGRESS NOTE WITH ANY DOCUMENTATION UPDATES OR ADDITIONS AND CARRY THROUGH TO DC SUMMARY. THANK YOU. DATE: 09/18/18, 09/21 ATTN: DR. KORIN BELCHER Please exercise your independent, professional judgment in responding to the clarification form. Clinical indicators are provided on the bottom of this form for your review. Please check appropriate box(es): [ ] Sepsis due to: (Pna, UTI, gangrenous gall bladder, etc.) [ x ] Localized infection without sepsis [ ] Other diagnosis [ ] Unable to determine In addition, please specify: Present on Admission (POA): [ x ] Yes [ ] No [ ] Unable to determine For continuity of documentation, please document condition throughout progress notes and discharge summary. Thank You. CLINICAL INDICATORS - SIGNS / SYMPTOMS / LABS ED PRESENTATION 2/2 : CHILLS, R DIABETIC FOOT WOUND (UNSTAGABLE), T 100.5 ( ORAL), P 88-124, R 18-24 ED PHYSICIAN DX: SEPSIS, CELLULITIS, DIABETIC FOOT WOUND LABS: WBC 14.7, CRP 4.13 RISK: NONHEALING DIABETIC ULCER RIGHT FOOT (H & P : BELCHER) TREATMENT: IV ANTIBIOTICS: ( VANC, CLINDAMYCIN 2/2- PRESENT) IVF (NS 2/2-PRESENT: 2L NS ER 2/2) THANK YOU! RESHMA (This form is maintained as a part of the permanent medical record) 2014 [employer]. All Rights Reserved Reshma Ching RN, BSN [email or web address] Office: [phone] [facility]
--- NOTE | 2018-09-18 13:56 | PQF ---
ELMER HUTTON MICHAEL E MD [id number] [address] [place] [address] [id number] CLINICAL DOCUMENTATION IMPROVEMENT CLARIFICATION FORM: ICD-10 Updated PLEASE DO AN ADDENDUM TO THE PROGRESS NOTE WITH ANY DOCUMENTATION UPDATES OR ADDITIONS AND CARRY THROUGH TO DC SUMMARY. THANK YOU. DATE: 09/18/18, 09/21 ATTN: DR. KORIN BELCHER Please exercise your independent, professional judgment in responding to the clarification form. Clinical indicators are provided on the bottom of this form for your review. Please check appropriate box(s): CELLULITIS R FOOT [ x ] Due to Diabetes [ ] Other diagnosis [ ] Unable to determine In addition, please specify: Present on Admission (POA): [ x ] Yes [ ] No [ ] Unable to determine For continuity of documentation, please document condition throughout progress notes and discharge summary. Thank You. CLINICAL INDICATORS - SIGNS / SYMPTOMS / LABS PHYSICIAN H & P 2/2: HX OF PRESENT ILLNESS - ...TO BE ADMITTED FOR CELLULITIS AND DIABETIC NONHEALING FOOT ULCER. ASSESSMENT: 1) STAPHYLOCOCCAL CELLULITIS OF THE RIGHT FOOT: 2.) NONHEALING DIABETIC ULCER: 3.) TYPE 2 DM RISK: TYPE 2 DM CELLULITIS R FOOT TREATMENTS: IV ANTIBIOTICS ( CLINDAMYCIN & VANC, 2/2- PRESENT) WOUNDCARE THANK YOU! RESHMA (This form is maintained as a part of the permanent medical record) 2014 [employer]. All Rights Reserved Reshma Ching RN, BSN [email or web address] Office: [phone] [facility]
--- NOTE | 2018-09-18 14:10 | EKG ---
Test Reason : CODE GREEN Blood Pressure : / mmHG Vent. Rate : 095 BPM Atrial Rate : 095 BPM P-R Int : 136 ms QRS Dur : 088 ms QT Int : 338 ms P-R-T Axes : 050 -06 046 degrees QTc Int : 424 ms Normal sinus rhythm Normal ECG No previous ECGs available Confirmed by DR. Angelica ASENCIO ([id number]) on 09/18/2018 2:09:40 PM Referred By: KORIN BELCHER Confirmed By:DR. Angelica ASENCIO
--- NOTE | 2018-09-18 14:11 | EKG ---
Test Reason : Blood Pressure : / mmHG Vent. Rate : 075 BPM Atrial Rate : 075 BPM P-R Int : 156 ms QRS Dur : 088 ms QT Int : 390 ms P-R-T Axes : 051 -10 010 degrees QTc Int : 435 ms Normal sinus rhythm Inferior infarct , age undetermined Abnormal ECG When compared with ECG of 17-SEP-2018 19:59, (Unconfirmed) Inverted T waves have replaced nonspecific T wave abnormality in Inferior leads Confirmed by DR. Angelica ASENCIO ([id number]) on 09/18/2018 2:10:39 PM Referred By: Don BELCHER Confirmed By:DR. Angelica ASENCIO
[2018-09-18] MEDS: HORIZANT PO SCH (21:24)
[2018-09-18] MEDS: Zolpidem Tartrate 5 MG TAB PO SCH (21:25)
[2018-09-18] MEDS: Ondansetron ODT 8 MG TAB PO PRN (23:16)
[2018-09-19] MEDS: Clindamycin/D5W 600 MG in Premix Bag 1 BAG IVPB SCH (06:09)
[2018-09-19] MEDS: Sodium Chloride 0.9% 1,000 ML IV SCH ×3 (06:29→19:05)
[2018-09-19 06:42] LABS: Hemoglobin 13.6 g/dL (14.0-18.0); Mean Corpuscular HGB CONC 33.9 g/dL (32.0-36.0); Mean Corpuscular Volume 91.6 fL (78.0-98.0); Mean Platelet Volume 8.8 fL (7.4-10.4); Platelet Count 293 thou/uL (130-400); RBC Distribution Width 11.4 % (11.5-14.5); Red Blood Cell (RBC) Count 4.39 mill/uL (4.70-6.10); White Blood Cell (WBC) Count 11.5 thou/uL (4.8-10.8)
[2018-09-19 06:50] LABS: Anion Gap 11 mmol/L (10-20); BUN (Urea Nitrogen) 10 mg/dL (8.9-20.6); Calc. Creatinine Clearance 168 mL/min (70-130); Calcium 9.1 mg/dL (7.8-10.44); Carbon Dioxide 28 mmol/L (22-29); Chloride 103 mmol/L (98-107); Estimated GFR-MDRD Greater than 90; Glucose 142 mg/dL (70-105); Potassium 4.3 mmol/L (3.5-5.1); Sodium 138 mmol/L (136-145)
[2018-09-19 06:59] LABS: Band 5 % (5-11); Eosinophils 1 % (0-10); Lymphocytes 16 % (21-51); MDiff Complete? YES; Monocytes 8 % (0-10); Neutrophil 69 % (42-75); Reactive Lymphocytes 1 % (0-10)
[2018-09-19] MEDS: Ibuprofen 800 MG TAB PO SCH (07:52)
[2018-09-19] MEDS: metFORMIN 500 MG TAB PO SCH ×2 (07:52→18:18)
[2018-09-19] MEDS: Alogliptin 25 MG TAB PO SCH ×2 (09:46→18:17)
[2018-09-19] MEDS: Acetaminophen/Codeine 30-300mg Tablet PO PRN ×2 (11:37→15:36)
[2018-09-19] MEDS: Ibuprofen 200 MG TAB PO SCH ×2 (12:23→18:49)
[2018-09-19] MEDS ORDERED: MEROPENEM 1 GM/50 ML 1 GM in Premix Bag 1 BAG IVPB SCH (14:00)
--- NOTE | 2018-09-19 14:15 | MRI ---
RIGHT FOOT MRI WITHOUT IV CONTRAST: HISTORY: Right foot cellulitis. COMPARISON: 08/18/2018 prior study. FINDINGS: There is a new abnormal T1 slightly hypodense, T2 hyperdense area of abnormal signal which is somewha t C-shaped measuring 2.5 cm in anterior posterior dimension and approximately 1.1 cm transversely. T his does contain some gas and is consistent with a focal area of infection. It measures approximatel y 4 cm in craniocaudal dimension. This is a new finding when compared to the prior MRI. There is ce rtainly progressive diffuse subcutaneous edema and swelling, particularly over the dorsal aspect of t he foot. In addition, there appears to be some generalized swelling and edematous changes of the int erosseous muscles of the foot including the muscles between the 2nd and 3rd, 3rd and 4th, and 4th and 5th. There is some new abnormal T2 hyperintensity and minimal T1 hypointensity associated with the lateral plantar aspect of the base of the 5th metatarsal certainly concerning for developing osteomye litis. IMPRESSION: Interval developing somewhat C-shaped fluid and minimal heterogeneous gas density overlying the later al plantar surface of the base of the 5th metatarsal which appears to connect to the open wound certa inly concerning for an abscess. New abnormal signal involving the lateral plantar aspect of the base of the 5th metatarsal itself, evidence for developing osteomyelitis. Diffuse worsening subcutaneous edema. There appears to be some generalized swelling and edematous changes involving the interosseo us muscles, evidence for diffuse myositis. There are some generalized stable T2 hyperintensity alejandro es within the intrinsic muscles of the foot, nonspecific, but this can be seen in cases of diabetes. CODE T POS: OFF
[2018-09-19] MEDS ORDERED: Diphenoxylate HCl/Atropine Tablet PO SCH (19:30)
[2018-09-19] MEDS: HORIZANT PO SCH (21:40)
[2018-09-19] MEDS: Zolpidem Tartrate 5 MG TAB PO SCH (21:40)
[2018-09-19] MEDS: Diphenoxylate HCl/Atropine Tablet PO PRN (22:13)
--- NOTE | 2018-09-19 23:02 | CON ---
DATE OF CONSULTATION: REASON FOR CONSULTATION: Right foot inflammatory process. HISTORY OF PRESENT ILLNESS: A 43-year-old patient with a history of type 2 diabetes mellitus and a chronic ulcer at the bottom aspect of the right foot, right behind the fifth MPJ skin site. This has been followed for the past many months, but now he has developed acute onset of inflammatory changes with swelling which have progressed despite IV and oral antimicrobial therapy. No headaches, visual symptoms, sore throat, odynophagia, or dysphagia. No cough, sputum production, chest pain, abdominal pain or diarrhea. No genitourinary symptoms. No neurological symptoms. PAST MEDICAL HISTORY: Type 2 diabetes, chronic ulcer, right foot. SOCIAL HISTORY: Never a smoker. ALLERGIES: PENICILLIN WITH RASH. FAMILY HISTORY: Noncontributory. CURRENT MEDS: 1. Alogliptin. 2. Flexeril. 3. Glucagon. 4. Insulin. 5. Meropenem. 6. Vancomycin. PHYSICAL EXAMINATION: VITAL SIGNS: T-max 100.7, currently 98.6, BP 130/80, pulse 89, respirations 18. SKIN: Shows an area of inflammatory changes with swelling surrounding this round shaped ulcer with yellow tissue at the base, right foot. The erythema wraps around the lateral aspect of the mid foot region around the fifth metatarsal base. HEENT: He has no lymphadenopathy. Ocular movements conjugate. Oral cavity is normal. NECK: Supple. LUNGS: Symmetric, clear breath sounds. HEART: S1, S2, regular rate. ABDOMEN: Soft, not distended or tender. EXTREMITIES: No joint inflammatory activity outside the involved area. Pulses are 2+ in dorsalis pedis. NEUROLOGIC: Cognitive function is intact. Neuro examination is nonfocal. LABORATORY DATA: White cell count is up to 11,000, hemoglobin 13, platelets 293. Sodium 138, creatinine 0.81. AST was 22, ALT 32, alkaline phosphatase 112, albumin 3.6, globulin 3.1. Urinalysis, fairly normal, 1/2 sets of blood cultures with coagulase negative Staph, likely contaminant. Influenza A and B negative. MRI, repeat MRI done today showed fluid collection, lateral plantar surface base of fifth metatarsal, early osteomyelitis, some myositis of the interosseous. ASSESSMENT: Type 2 diabetes with right foot inflammatory process secondary to ulcer with evidence of myositis, early osteomyelitis, fifth metatarsal, and possible abscess. PLAN: Switch him to meropenem and vancomycin, and surgical consultation. I have contacted Dr. Traylor and discussed with her the case to see if she thinks that he is going to need surgical debridement, cultures, probably need PICC line placement, protracted IV antimicrobial therapy administration. Job ID: [id number]
[2018-09-20] MEDS: Ibuprofen 200 MG TAB PO SCH ×5 (01:13→23:41)
[2018-09-20] MEDS: MEROPENEM 1 GM/50 ML 1 GM in Premix Bag 1 BAG IVPB SCH ×3 (01:13→16:42)
[2018-09-20] MEDS: Acetaminophen/Codeine 30-300mg Tablet PO PRN ×5 (02:45→23:41)
[2018-09-20] MEDS: Sodium Chloride 0.9% 1,000 ML IV SCH ×3 (06:48→17:43)
[2018-09-20 07:13] LABS: #Basophils 0.1 thou/uL (0.0-0.2); #Eosinphils 0.2 thou/uL (0.0-0.7); #Lymphocytes 1.9 thou/uL (1.20-3.40); #Monocytes 1.2 thou/uL (0.11-0.59); #Neutrophils 8.4 thou/uL (1.40-6.50); %Basophils 0.5 % (0.0-1.0); %Eosinophils 1.6 % (0.0-10.0); %Monocytes 10.2 % (0.0-10.0); %Neutrophils 71.6 % (42.0-75.0); Hemoglobin 12.7 g/dL (14.0-18.0); Mean Corpuscular HGB CONC 33.2 g/dL (32.0-36.0); Mean Corpuscular Hemoglobin 30.3 pg (27.0-31.0); Mean Corpuscular Volume 91.2 fL (78.0-98.0); Mean Platelet Volume 8.8 fL (7.4-10.4); Platelet Count 318 thou/uL (130-400); RBC Distribution Width 11.2 % (11.5-14.5); Red Blood Cell (RBC) Count 4.21 mill/uL (4.70-6.10); White Blood Cell (WBC) Count 11.7 thou/uL (4.8-10.8)
[2018-09-20] MEDS: Alogliptin 25 MG TAB PO SCH ×2 (09:39→16:05)
[2018-09-20] MEDS: metFORMIN 500 MG TAB PO SCH ×2 (09:39→16:05)
--- NOTE | 2018-09-20 12:57 | SPC ---
SONOGRAPHIC GUIDED LEFT UPPER EXTREMITY PICC: HISTORY: Osteomyelitis. TECHNIQUE: After explaining the procedure and answering all questions, the left upper extremity was prepped and draped in the usual sterile fashion. Sterile technique, buffered local anesthesia, sonographic ziyad nce, and a 22 gauge needle were used to carefully access the left brachial vein. Standard technique was then used to place the tip of a 5 [place] single-lumen PICC so that the tip lies at the level of t he cavoatrial junction. The catheter was flushed and secured externally. The patient tolerated the procedure well and was returned in unchanged condition. FLUOROSCOPY TIME: 0 seconds. IMPRESSION: Left upper extremity peripherally inserted central catheter is ready for use. POS: [facility]
[2018-09-20] MEDS: Cyclobenzaprine 10 MG TAB PO PRN ×2 (14:00→21:45)
--- NOTE | 2018-09-20 18:02 | PDOC.GSPN ---
Surgery Progress Note: Subj - Subjective Narrative: I was asked to see patient for chronic ulcer on right foot with underlying abscess cavity. This appears to originate from the right fifth metatarsal base, which is higher than I operate on. The abscess cavity does probe to the deep tissues although I cannot definitely feel bone or joint. There does not appear to be any undrained fluid on exam or on MRI. I have asked Dr. Mehta to see the patient due to the location of his infectious process. He has reviewed the films and is going to come see him tomorrow. Currently the abscess appears to be well drained although the erythema and swelling according to the patient have not improved. Surgery Progress Note: Obj - Vital signs Vital signs: Vital Signs - Most Recent Temp Pulse Resp BP Pulse Ox 98.6 F 83 16 138/79 94 L 09/20/18 15:50 09/20/18 15:50 09/20/18 15:50 09/20/18 15:50 09/20/18 15:50 Surgery Progress Note: Results - Labs Result Diagrams: 09/20/18 06:50 09/19/18 06:23 Lab results: Laboratory Results - last 24 hr 09/20/18 09/20/18 09/20/18 06:36 06:50 10:58 WBC 11.7 H RBC 4.21 L Hgb 12.7 L Hct 38.4 L MCV 91.2 MCH 30.3 MCHC 33.2 RDW 11.2 L Plt Count 318 MPV 8.8 Neutrophils % 71.6 Lymphocytes % 16.0 L Monocytes % 10.2 H Eosinophils % 1.6 Basophils % 0.5 Neutrophils # 8.4 H Lymphocytes # 1.9 Monocytes # 1.2 H Eosinophils # 0.2 Basophils # 0.1 POC Glucose 122 H 138 H 09/20/18 13:12 WBC RBC Hgb Hct MCV MCH MCHC RDW Plt Count MPV Neutrophils % Lymphocytes % Monocytes % Eosinophils % Basophils % Neutrophils # Lymphocytes # Monocytes # Eosinophils # Basophils # POC Glucose 121 H
--- NOTE | 2018-09-20 18:30 | PRG ---
DATE OF SERVICE: 09/20/2018 SUBJECTIVE: Feeling better, less pain. Dr. Traylor evaluated the patient, but referred to clinical exercise physiologist, I believe. No shortness of breath or chest pain. No abdominal pain. OBJECTIVE: VITAL SIGNS: T-max 99.5 and blood pressure 137/82. LUNGS: Clear. HEART: S1 and S2. Regular rate. ABDOMEN: Soft and not distended. EXTREMITIES: Right foot with quite a bit of decrease in inflammatory changes with less swelling and less erythema. LABORATORY DATA: White cell count 11.7, hemoglobin 12.7, and platelets 318. Microbiology with coag-negative staph. ASSESSMENT AND DISCUSSION: Right foot inflammatory change with small abscess, early fifth metatarsal osteomyelitis. The patient currently on meropenem and vancomycin to be continued pending surgical evaluation. Plan is long-term IV antimicrobial therapy, may have to continue with the current regimen since we do not have a microbiology until in this patient. Job ID: [id number]
[2018-09-20] MEDS: HORIZANT PO SCH (21:46)
[2018-09-21] MEDS: MEROPENEM 1 GM/50 ML 1 GM in Premix Bag 1 BAG IVPB SCH ×3 (02:07→16:26)
[2018-09-21] MEDS: Zolpidem Tartrate 5 MG TAB PO SCH ×2 (02:09→21:10)
[2018-09-21] MEDS: Ibuprofen 200 MG TAB PO SCH ×3 (06:04→17:15)
[2018-09-21 06:57] LABS: #Eosinphils 0.1 thou/uL (0.0-0.7); #Lymphocytes 1.5 thou/uL (1.20-3.40); #Monocytes 1.1 thou/uL (0.11-0.59); %Basophils 0.3 % (0.0-1.0); %Eosinophils 1.3 % (0.0-10.0); %Lymphocytes 13.8 % (21.0-51.0); %Monocytes 9.9 % (0.0-10.0); %Neutrophils 74.8 % (42.0-75.0); Hemoglobin 11.6 g/dL (14.0-18.0); Mean Corpuscular HGB CONC 33.4 g/dL (32.0-36.0); Mean Corpuscular Hemoglobin 30.6 pg (27.0-31.0); Mean Corpuscular Volume 91.8 fL (78.0-98.0); Platelet Count 281 thou/uL (130-400); RBC Distribution Width 11.3 % (11.5-14.5); Red Blood Cell (RBC) Count 3.79 mill/uL (4.70-6.10); White Blood Cell (WBC) Count 10.7 thou/uL (4.8-10.8)
--- NOTE | 2018-09-21 09:04 | RAD ---
CHEST 2 VIEWS: Date: 09/21/18 HISTORY: Chest pain. Pneumonia. COMPARISON: None. FINDINGS: There is interval placement of a left PICC with tip in good position. There is worsening right basila r air space opacity and layering effusion. Left lung is clear. No pneumothorax. IMPRESSION: Worsening air space opacity of right lung base with layering effusion suggesting pneumonia and parapn eumonic effusion. POS: [facility]
[2018-09-21] MEDS: Alogliptin 25 MG TAB PO SCH ×2 (09:07→16:04)
[2018-09-21] MEDS: metFORMIN 500 MG TAB PO SCH ×2 (09:07→16:04)
[2018-09-21] MEDS ORDERED: PROPOFOL 200 MG/20 ML VIAL ONE (12:14)
[2018-09-21] MEDS ORDERED: Lidocaine 1% PF 5 ML VIAL ONE (12:14)
[2018-09-21] MEDS ORDERED: Ketorolac Tromethamine 30 MG/ML VIAL ONE (12:14)
[2018-09-21] MEDS ORDERED: Ondansetron PF 4 MG/2 ML Vial ONE (12:14)
[2018-09-21] MEDS ORDERED: Dexamethasone 20 MG/5 ML VIAL ONE (12:14)
[2018-09-21] MEDS ORDERED: Fentanyl 100 MCG/2 ML VIAL ONE (13:20)
[2018-09-21] MEDS ORDERED: Midazolam HCl 2 mg/2 ml Vial ONE (13:21)
[2018-09-21] MEDS ORDERED: Neomycin-Polymyxin 1 ML AMP ONE (13:37)
[2018-09-21] MEDS ORDERED: Promethazine HCl 25 MG/ML VIAL SLOW IVP PRN (15:12)
[2018-09-21] MEDS ORDERED: Promethazine HCl 25 MG/ML VIAL IM PRN (15:12)
[2018-09-21] MEDS ORDERED: Ondansetron HCl/PF 4 MG/2 ML Vial IVP PRN (15:12)
--- NOTE | 2018-09-21 15:36 | CON ---
DATE OF CONSULTATION: 09/21/2018 CHIEF COMPLAINT: Right foot infection. HISTORY OF PRESENT ILLNESS: This is a 43-year-old male, who has had several months of callus formation and developing a draining ulcer from the right lateral midfoot. He has longstanding diabetes with neuropathy and has not had previous foot wounds or infection. He has been in his usual state of health and recently admitted for IV antibiotics therapy due to progression and sepsis. He had progression with migration of erythema up the leg and has had continued temperature elevations. He has grown a Staph epidermidis from blood and has had Infectious Disease consultation with Dr. Huffman. PAST MEDICAL HISTORY: Documented type 2 diabetes and neuropathy. MEDICATIONS: Listed. ALLERGIES: LISTED. FAMILY HISTORY: Noncontributory. SOCIAL HISTORY: Noncontributory. PHYSICAL EXAMINATION: GENERAL: He is alert, in minimal distress. EXTREMITIES: His right lower extremity, there is mild swelling beginning in the ankle and mid foot area. He has mild erythema around the ankle, lower leg, and down to the mid foot. The ankle has full motion. Ligaments are stable. He has a mild to moderate cavus foot. He has prominent fifth metatarsal callus plantarly with central ulceration and serous drainage. No significant fluctuance noted. He has some discomfort with palpation in the area with some erythema and fluctuant area distal to the ulcer on the lateral forefoot. His vascular is intact to his remaining foot. NEUROLOGIC: He has sensory deficit. Diminished sharp and light touch to the plantar foot. DIAGNOSTIC DATA: Radiographs and MRI reviewed. MRI shows evidence of abscess in the lateral midfoot with significant signal change in the base of the fifth metatarsal. No lytic changes on plane radiographs. IMPRESSION AND RECOMMENDATIONS: Neuropathic ulcer, right foot with resultant abscess and cellulitis along with septicemia. He is currently on appropriate IV antibiotics therapy, has had some improvement, but still having temperature elevations and would recommend incision and drainage of the abscess. We will evaluate tendinous and bone structure intraoperatively. Prognosis is fair. Remain n.p.o. and consent. Job ID: [id number]
[2018-09-21] MEDS ORDERED: cefTRIAXone\\ROCEPHIN 2 GM in Sodium Chloride 0.9% 100 ML IVPB SCH (16:00)
--- NOTE | 2018-09-21 16:45 | PRG ---
DATE OF SERVICE: 09/21/2018 SUBJECTIVE: Mr. Lopez is postop from [facility] the [facility]. I do not have the operative report. A little bit groggy. No chest pain. No abdominal pain. OBJECTIVE: VITAL SIGNS: Normal. LUNGS: Clear. HEART: S1 and S2. Regular rate. ABDOMEN: Soft, not distended. EXTREMITIES: Foot dressing not removed. LABORATORY DATA: White cell count 10.7, hemoglobin 11.6, and platelets 281. Microbiology, we do not have any samples yet available for review from the surgical procedure. ASSESSMENT AND DISCUSSION: Right foot inflammatory change, small abscess, early 5th metatarsal osteomyelitis, status post surgical intervention, and Dr. Mehta is the surgeon in the case. We will wait for the operative report and culture results. Continue current regimen. Job ID: [id number]
[2018-09-21] MEDS ORDERED: SITAGLIPTIN PHOS PO SCH (17:00)
[2018-09-21] MEDS ORDERED: METFORMIN HCL PO SCH (17:00)
[2018-09-21] MEDS ORDERED: GABAPENTIN ENACARBIL 300 MG PO SCH (21:00)
[2018-09-21] MEDS: HORIZANT PO SCH (21:12)
[2018-09-21] MEDS: Insulin Regular 300 UNITS/3 ML VIAL SC PRN (21:15)
--- NOTE | 2018-09-21 21:38 | OP ---
DATE OF PROCEDURE: 09/21/2018 PREOPERATIVE DIAGNOSIS: Right foot abscess with neuropathic ulcer. POSTOPERATIVE DIAGNOSIS: Right foot abscess with neuropathic ulcer. PROCEDURE PERFORMED: Incision and drainage, right foot abscess, skin, subcu, and deep tissue, subfascial. ANESTHESIA: General. COMPLICATIONS: None. CONDITION: Fair. ESTIMATED BLOOD LOSS: 20 mL. DRAINS: One half-inch [place]. CULTURES: Cultures x1. TECHNIQUE: Simple stain. DESCRIPTION OF PROCEDURE: The patient was taken to the operating room and placed in supine position. After adequate general anesthesia had been achieved, the patient's right foot and ankle was examined. The patient had swelling and some discoloration fluctuants over the lateral mid foot and a plantar callus ulcer under the base of fifth metatarsal. The foot and ankle was positioned, prepped and draped in sterile fashion. Tourniquet was placed in supramalleolar area in the foot. However, the tourniquet was inflated prior to incision. The plantar ulcerative area and callus were debrided and the ulcer was excised measured approximately 7 to 8 mm and was excised in elliptical fashion. The patient had large amount of purulent material from the ulcer. A lateral incision was made over the lateral mid foot beginning at the base of the fifth MTP joint extending to the cuboid area. The patient had fluctuance and purulent material throughout the lateral part of the foot. This was carefully irrigated and the nonviable tissue debrided including the abductor fascia over the fifth metatarsal base. The peroneus brevis tendon appeared to be intact and did not appear to have any intra-articular involvement; however, some involvement into the plantar fatty skin, but it was carefully tracked and debrided. After copious irrigation, drain was placed posterolateral and the incision was closed with 3-0 nylon and a gentle retention suture. The patient's dorsal skin had borderline viability due to abscess destruction. A sterile bulky dressing was applied and the patient was taken to Recovery. We will continue IV antibiotic therapy. Cultures will be adjusted as needed and we will monitor skin viability. PROGNOSIS: Guarded. Job ID: [id number]
[2018-09-22] MEDS: Ibuprofen 200 MG TAB PO SCH ×4 (00:13→17:26)
[2018-09-22] MEDS: MEROPENEM 1 GM/50 ML 1 GM in Premix Bag 1 BAG IVPB SCH ×3 (01:04→17:25)
[2018-09-22] MEDS: Insulin Regular 300 UNITS/3 ML VIAL SC PRN ×2 (06:05→12:50)
[2018-09-22 06:40] LABS: #Lymphocytes 1.7 thou/uL (1.20-3.40); #Monocytes 1.1 thou/uL (0.11-0.59); %Basophils 0.2 % (0.0-1.0); %Eosinophils 0.4 % (0.0-10.0); %Lymphocytes 12.9 % (21.0-51.0); %Monocytes 8.8 % (0.0-10.0); %Neutrophils 77.7 % (42.0-75.0); Hemoglobin 12.5 g/dL (14.0-18.0); Mean Corpuscular HGB CONC 33.5 g/dL (32.0-36.0); Mean Corpuscular Hemoglobin 30.8 pg (27.0-31.0); Mean Corpuscular Volume 91.8 fL (78.0-98.0); Mean Platelet Volume 8.9 fL (7.4-10.4); Platelet Count 348 thou/uL (130-400); RBC Distribution Width 11.3 % (11.5-14.5); Red Blood Cell (RBC) Count 4.07 mill/uL (4.70-6.10); White Blood Cell (WBC) Count 12.9 thou/uL (4.8-10.8)
[2018-09-22 07:05] LABS: ALT (SGPT) 28 U/L (8-55); AST (SGOT) 19 U/L (5-34); Alkaline Phosphatase 128 U/L (40-150); Anion Gap 10 mmol/L (10-20); BUN (Urea Nitrogen) 12 mg/dL (8.9-20.6); Bilirubin, Total 0.6 mg/dL (0.2-1.2); Calc. Creatinine Clearance 156 mL/min (70-130); Calcium 8.5 mg/dL (7.8-10.44); Carbon Dioxide 29 mmol/L (22-29); Chloride 102 mmol/L (98-107); Estimated GFR-MDRD Greater than 90; Globulin 2.9 g/dL (2.4-3.5); Glucose 204 mg/dL (70-105); Potassium 3.6 mmol/L (3.5-5.1); Protein, Total 5.9 g/dL (6.0-8.3); Sodium 137 mmol/L (136-145)
[2018-09-22] MEDS: metFORMIN 500 MG TAB PO SCH ×2 (08:18→17:26)
[2018-09-22] MEDS: Alogliptin 25 MG TAB PO SCH ×2 (08:18→17:25)
--- NOTE | 2018-09-22 09:19 | CT ---
CT CHEST WITH IV CONTRAST: DATE: 09/22/2018. PROVIDED CLINICAL HISTORY: Abnormal chest radiograph, cough, right foot cellulitis. FINDINGS: The heart, pericardium, and great vessels demonstrate an unremarkable CT appearance. There is no evidence for thoracic lymph node enlargement. The airway appears patent and of normal caliber. There are small bilateral pleural effusions, right greater than left. Adjacent subsegmental atelecta tic change. The lungs are free of significant opacity. No evidence for pneumothorax. Left upper extremity PICC line is noted, with tip in the region of the brachiocephalic confluence. The visualized portions of the upper abdomen demonstrate no significant abnormality. IMPRESSION: Small bilateral pleural effusions, right greater than left. POS: [facility]
[2018-09-22 11:17] LABS: Vancomycin, Trough 13.6 ug/mL
[2018-09-22] MEDS: Vancomycin HCl 1.5 GM in Sodium Chloride 0.9% 250 ML 300 ML IVPB SCH ×2 (12:51→19:44)
--- NOTE | 2018-09-22 14:06 | PRG ---
DATE OF SERVICE: 09/22/2018 SUBJECTIVE: The patient had surgical debridement by Dr. Mehta yesterday. Operative report reviewed, and there was purulent material throughout the lateral part of the foot, which was irrigated and nonviable tissue debrided including the abductor fascia over the fifth metatarsal base. Peroneus brevis tendon was intact. There was some fatty skin involvement in the plantar aspect, which was debrided and a drain was placed. There was concern with the dorsal skin viability. He had a CT of chest done, which showed small bilateral pleural effusions, but no other changes. OBJECTIVE: VITAL SIGNS: Essentially normal vital signs. HEENT: Ocular movements conjugate. Oral cavity normal. NECK: Supple. LUNGS: Symmetric air entry. CARDIOVASCULAR: S1, S2. Regular rate. ABDOMEN: Soft. EXTREMITIES: Right foot with stitches covering the lateral aspect of the right foot. A little bit of a dusky discoloration of the dorsal aspect of the right lateral foot. LABORATORY DATA: White cell count 12.9, hemoglobin 12.5, platelets 348. Creatinine 0.87. Microbiology with gram-negative rods, isolated and the anaerobic culture is pending. ASSESSMENT AND PLAN: Type 2 diabetes and right foot inflammatory change secondary to chronic ulcer, small abscess, status post debridement. Evidence of early metatarsal osteomyelitis. Continue monitoring cultures. May need repeat surgical intervention depending on clinical progress. Job ID: [id number]
[2018-09-22] MEDS: HORIZANT PO SCH (20:59)
[2018-09-22] MEDS: Zolpidem Tartrate 5 MG TAB PO SCH (21:15)
[2018-09-22] MEDS: Cyclobenzaprine 10 MG TAB PO PRN (22:34)
[2018-09-23] MEDS: MEROPENEM 1 GM/50 ML 1 GM in Premix Bag 1 BAG IVPB SCH ×3 (01:22→17:50)
[2018-09-23] MEDS: Ibuprofen 200 MG TAB PO SCH ×5 (01:28→22:49)
[2018-09-23] MEDS: Vancomycin HCl 1.5 GM in Sodium Chloride 0.9% 250 ML 300 ML IVPB SCH ×3 (03:58→20:07)
[2018-09-23 05:02] LABS: #Eosinphils 0.2 thou/uL (0.0-0.7); #Lymphocytes 2.3 thou/uL (1.20-3.40); #Monocytes 0.8 thou/uL (0.11-0.59); #Neutrophils 4.8 thou/uL (1.40-6.50); %Basophils 0.2 % (0.0-1.0); %Eosinophils 2.8 % (0.0-10.0); %Lymphocytes 28.6 % (21.0-51.0); %Monocytes 9.3 % (0.0-10.0); %Neutrophils 59.2 % (42.0-75.0); Hemoglobin 11.2 g/dL (14.0-18.0); Mean Corpuscular HGB CONC 33.3 g/dL (32.0-36.0); Mean Corpuscular Hemoglobin 30.8 pg (27.0-31.0); Mean Corpuscular Volume 92.5 fL (78.0-98.0); Mean Platelet Volume 8.4 fL (7.4-10.4); Platelet Count 336 thou/uL (130-400); RBC Distribution Width 11.4 % (11.5-14.5); Red Blood Cell (RBC) Count 3.64 mill/uL (4.70-6.10); White Blood Cell (WBC) Count 8.1 thou/uL (4.8-10.8)
[2018-09-23] MEDS: metFORMIN 500 MG TAB PO SCH ×2 (08:09→17:52)
[2018-09-23] MEDS: Alogliptin 25 MG TAB PO SCH ×2 (08:09→17:52)
[2018-09-23 11:44] LABS: Vancomycin, Trough 17.5 ug/mL
[2018-09-23] MEDS: Diphenoxylate HCl/Atropine Tablet PO PRN (13:06)
--- NOTE | 2018-09-23 16:00 | EKG ---
Test Reason : Blood Pressure : / mmHG Vent. Rate : 105 BPM Atrial Rate : 105 BPM P-R Int : 136 ms QRS Dur : 086 ms QT Int : 330 ms P-R-T Axes : 022 -22 018 degrees QTc Int : 436 ms Sinus tachycardia Otherwise normal ECG Confirmed by WARREN SCHNEIDER ([id number]), purchasing expeditor TAVO WHEAT ([id number] on 09/23/2018 3:59:37 PM Referred By: Confirmed By:WARREN SCHNEIDER
[2018-09-23] MEDS: Ondansetron ODT 8 MG TAB PO PRN (19:50)
[2018-09-23] MEDS: HORIZANT PO SCH (20:07)
[2018-09-23] MEDS: Zolpidem Tartrate 5 MG TAB PO SCH (22:46)
[2018-09-23] MEDS: Cyclobenzaprine 10 MG TAB PO PRN (22:46)
[2018-09-24] MEDS: MEROPENEM 1 GM/50 ML 1 GM in Premix Bag 1 BAG IVPB SCH ×3 (00:13→17:34)
[2018-09-24] MEDS: Vancomycin HCl 1.5 GM in Sodium Chloride 0.9% 250 ML 300 ML IVPB SCH ×3 (04:04→20:04)
[2018-09-24] MEDS: Ibuprofen 200 MG TAB PO SCH ×4 (05:44→23:20)
[2018-09-24 06:30] LABS: #Eosinphils 0.3 thou/uL (0.0-0.7); #Lymphocytes 1.7 thou/uL (1.20-3.40); #Monocytes 0.7 thou/uL (0.11-0.59); #Neutrophils 4.4 thou/uL (1.40-6.50); %Basophils 0.6 % (0.0-1.0); %Eosinophils 4.2 % (0.0-10.0); %Lymphocytes 23.8 % (21.0-51.0); %Monocytes 9.4 % (0.0-10.0); Hemoglobin 12.1 g/dL (14.0-18.0); Mean Corpuscular HGB CONC 33.8 g/dL (32.0-36.0); Mean Corpuscular Volume 91.7 fL (78.0-98.0); Mean Platelet Volume 8.3 fL (7.4-10.4); Platelet Count 373 thou/uL (130-400); RBC Distribution Width 11.4 % (11.5-14.5); Red Blood Cell (RBC) Count 3.91 mill/uL (4.70-6.10)
[2018-09-24] MEDS: Ondansetron ODT 8 MG TAB PO PRN (09:20)
[2018-09-24] MEDS: metFORMIN 500 MG TAB PO SCH ×2 (09:20→17:34)
[2018-09-24] MEDS: Alogliptin 25 MG TAB PO SCH ×2 (09:21→17:34)
--- NOTE | 2018-09-24 14:17 | PRG ---
DATE OF SERVICE: 09/24/2018 SUBJECTIVE: Feeling better. No respiratory symptoms. A little bit of diarrhea. No abdominal pain. No genitourinary symptoms. OBJECTIVE: VITAL SIGNS: Normal. GENERAL: Awake, alert, oriented. LUNGS: Clear. HEART: S1, S2. Regular rate. ABDOMEN: Soft. Not distended. EXTREMITIES: Right foot dressing not removed. LABORATORY DATA: White cell count 7.0, hemoglobin 12.1, platelets 373. Creatinine is 0.87. ASSESSMENT AND DISCUSSION: Type 2 diabetes, right foot inflammatory change with early osteomyelitis, small abscess status post debridement, now E coli and streptococcus identified. Continue with outpatient IV antimicrobial therapy. The role of anaerobes has to be considered as well and taken into account for discharge planning. We will continue probably IV Rocephin and Flagyl or similar regimen in the outpatient setting through my [facility]. This patient would visit us once a week for monitoring progress and lab work and change the PICC line dressing. Job ID: [id number]
[2018-09-24] MEDS: GABAPENTIN ENACARBIL 300 MG PO SCH ×3 (17:39→18:07)
[2018-09-24] MEDS: HORIZANT PO SCH (20:05)
[2018-09-24] MEDS: Cyclobenzaprine 10 MG TAB PO PRN (20:08)
[2018-09-24] MEDS: Zolpidem Tartrate 5 MG TAB PO SCH (20:08)
[2018-09-25] MEDS: MEROPENEM 1 GM/50 ML 1 GM in Premix Bag 1 BAG IVPB SCH ×2 (00:13→08:30)
[2018-09-25] MEDS: Vancomycin HCl 1.5 GM in Sodium Chloride 0.9% 250 ML 300 ML IVPB SCH ×2 (04:12→12:14)
[2018-09-25 05:53] LABS: #Basophils 0.1 thou/uL (0.0-0.2); #Eosinphils 0.3 thou/uL (0.0-0.7); #Lymphocytes 1.7 thou/uL (1.20-3.40); #Monocytes 0.8 thou/uL (0.11-0.59); #Neutrophils 4.5 thou/uL (1.40-6.50); %Basophils 0.7 % (0.0-1.0); %Eosinophils 3.4 % (0.0-10.0); %Lymphocytes 23.7 % (21.0-51.0); %Monocytes 10.3 % (0.0-10.0); %Neutrophils 61.9 % (42.0-75.0); Mean Corpuscular HGB CONC 33.9 g/dL (32.0-36.0); Mean Corpuscular Hemoglobin 31.1 pg (27.0-31.0); Mean Corpuscular Volume 91.8 fL (78.0-98.0); Mean Platelet Volume 8.5 fL (7.4-10.4); Platelet Count 370 thou/uL (130-400); RBC Distribution Width 11.3 % (11.5-14.5); Red Blood Cell (RBC) Count 3.85 mill/uL (4.70-6.10); White Blood Cell (WBC) Count 7.3 thou/uL (4.8-10.8)
[2018-09-25] MEDS: Ibuprofen 200 MG TAB PO SCH ×2 (06:00→12:14)
[2018-09-25] MEDS: Alogliptin 25 MG TAB PO SCH (08:29)
[2018-09-25] MEDS: metFORMIN 500 MG TAB PO SCH (08:29)
[2018-09-25 12:04] LABS: Vancomycin, Trough 17.8 ug/mL
[2018-09-25] MEDS: Diphenoxylate HCl/Atropine Tablet PO PRN (12:20)
[2018-09-25] MEDS: Ondansetron ODT 8 MG TAB PO PRN (12:20)
[2018-09-25 14:25] VITALS: BP 122/85; TEMP 98.3
[2018-09-26] MEDS ORDERED: TRULICITY 1.5 MG/0.5 ML SC SCH (09:00)
== END 2018-09-25 14:23 | disposition home or self-care (01) | DRG 623 ==
LOC: ERS 14:34 → T4-B 15:35 → CCU 09-17 20:26 → 3SE 09-18 10:36 → T4-B 09-23 08:37
PROVIDERS: ADMIT Specialist; ATTEND Specialist
PROC: 02HV33Z Insertion of Infusion Device into Superior Vena Cava, Percutaneous Approach (ICD-10-PCS; principal; 2018-09-21)
PROC: 0JBQ0ZZ Excision of Right Foot Subcutaneous Tissue and Fascia, Open Approach (ICD-10-PCS; 2018-09-21)
DX: E11.69 Type 2 diabetes mellitus with other specified complication (principal); M86.8X7 Other osteomyelitis, ankle and foot; J90 Pleural effusion, not elsewhere classified; E11.621 Type 2 diabetes mellitus with foot ulcer; E11.40 Type 2 diabetes mellitus with diabetic neuropathy, unspecified; L97.519 Non-pressure chronic ulcer of other part of right foot with unspecified severity; B96.20 Unspecified Escherichia coli [E. coli] as the cause of diseases classified elsewhere; B95.5 Unspecified streptococcus as the cause of diseases classified elsewhere; Z79.84 Long term (current) use of oral hypoglycemic drugs; Z88.0 Allergy status to penicillin
CPT/HCPCS: 36415; 36416; 36569; 71045; 71046; 71260; 80048; 80053; 80202; 81003; 82550; 83605; 84484; 85007; 85025; 85027; 85652; 86140; 87040; 87070; 87076; 87077; 87149; 87186; 87205; 87324; 87449; 87804; 87899; 93005; 93010; 96365; 96366; 96368; 96375; C1751; J0696; J1100; J1644; J1815; J1885; J1956; J2001; J2185; J2250; J2270; J2405; J2704; J3010; J3370; J3490; J7050

== ENCOUNTER 2018-09-27 14:59 | Outpatient (CLI) | payer BC ==
[2018-09-27] MEDS ORDERED: Sodium Chloride 0.9% 15 ML NEB ONE (16:12)
--- NOTE | 2018-09-27 16:29 | PRG ---
DATE OF SERVICE: 09/27/2018 HISTORY: Mr. Alexx Lopez is a very pleasant 43-year-old who presents to the [facility] for evaluation of a wound of the right lateral foot subsequent to incision and drainage for treatment of a right foot abscess with neuropathic ulcer on 09/21/[address] Jani Mehta. At surgery, the patient underwent primary closure of the wound. During the patient's hospital stay, Mr. Lopez was seen in consultation by Infectious Diseases and the patient is receiving IV antibiotics as per Dr. Ayo Huffman. The patient continues to utilize his knee scooter. PHYSICAL EXAMINATION: VITAL SIGNS: Temperature 97.8, pulse 101, respirations 21, blood pressure 158/92. Accu-Chek 170. EXTREMITIES: A wound of the right lateral foot is present, which is 12.5 cm in length. The patient has undergone primary closure of the right lateral foot wound with 11 sutures. No purulent drainage is associated with the surgical wound. No maceration of the skin of the periwound is noted. No significant edema of the right foot is appreciated on exam today. ASSESSMENT AND PLAN: 1. Right lateral foot wound as described above. As stated above, the patient is receiving IV antibiotics as per Dr. Ayo Huffman of Infectious Diseases for osteomyelitis. I will see Mr. Lopez again as needed after evaluation by Dr. Mehta of Orthopedic Surgery. The patient has been instructed to perform dressing changes of Xeroform gauze, an ABD, Kerlix, and an Kvng bandage on a daily basis. He is also to continue to utilize his knee scooter for offloading of his right foot wound. The patient understands and is in agreement with the preceding treatment plan. 2. Diabetes mellitus. The patient's Accu-Chek in clinic today is 170. The patient has been told that for optimal wound healing, his blood glucoses should remain below 150. Job ID: [id number]
== END 2018-09-27 15:00 | disposition home or self-care (01) ==
LOC: WCC 14:59
PROVIDERS: ATTEND Family Medicine
DX: E11.621 Type 2 diabetes mellitus with foot ulcer (principal); L97.519 Non-pressure chronic ulcer of other part of right foot with unspecified severity
CPT/HCPCS: 97602

== ENCOUNTER 2018-09-28 23:44 | Emergency (ER) | payer BC | END 2018-09-29 05:07 | disposition home or self-care (01) | LOC: ERS 23:44 | DX: T82.838A Hemorrhage due to vascular prosthetic devices, implants and grafts, initial encounter (principal); E11.9 Type 2 diabetes mellitus without complications | CPT/HCPCS: 99283 ==

== ENCOUNTER 2018-11-06 15:19 | Outpatient (CLI) | payer BC ==
--- NOTE | 2018-11-06 16:27 | PRG ---
DATE OF SERVICE: 11/06/2018 HISTORY: Mr. Alexx Lopez is a very pleasant 43-year-old gentleman, who presents to the [facility] for evaluation of a wound of the right lateral foot subsequent to incision and drainage for treatment of a right foot abscess with neuropathic ulcer on 09/21/[address] Jani Mehta. At surgery, the patient underwent primary closure of the wound. During the patient's hospital stay, Mr. Lopez was seen in consultation by Infectious Diseases and the patient has received IV antibiotics as per Dr. Ayo Huffman. The patient is now receiving p.o. antibiotics as per Dr. Huffman. OBJECTIVE: VITAL SIGNS: Temperature 97.8, pulse 99, respirations 16, blood pressure 132/76. Accu-Chek 180. EXTREMITIES: A wound of the dorsum of the right lateral foot is present which measures approximately 8.6 x 2.5 cm. No purulent drainage is associated with the wound. No significant edema of the right foot is appreciated on exam today. A plantar wound is present over the right lateral foot, which connects with the wound over the dorsum of the right foot. ASSESSMENT AND PLAN: 1. Right lateral foot wounds as described above. As stated above, the patient is receiving p.o. antibiotics as per Dr. Ayo Huffman of Infectious Diseases. The patient previously received IV antibiotics as per Dr. Huffman for osteomyelitis. The patient was recently seen by Dr. Mehta of Orthopedic Surgery. The findings on physical exam have been discussed with Dr. Mehta today. The patient has been instructed to perform dressing changes of Medihoney for the right foot wounds on a daily basis after cleansing and irrigation. Gauze will be utilized as a secondary dressing. The patient is also to continue to utilize his knee scooter for offloading of his right foot wound. The patient understands and is in agreement with the preceding treatment plan. I will see Mr. Lopez again in 2 weeks. The patient has been asked to keep his followup appointment with Dr. Mehta in November of this year. 2. Diabetes mellitus. The patient's Accu-Chek in clinic today is 180. The patient has been reminded that for optimal wound healing, his blood glucoses should remain below 150. Job ID: [id number]
[2018-11-06] MEDS ORDERED: Sodium Chloride 0.9% 15 ML NEB ONE (18:00)
== END 2018-11-06 15:20 | disposition home or self-care (01) ==
LOC: WCC 15:19
PROVIDERS: ATTEND Family Medicine
DX: T81.89XD Other complications of procedures, not elsewhere classified, subsequent encounter (principal); E11.9 Type 2 diabetes mellitus without complications
CPT/HCPCS: A4218

== ENCOUNTER 2018-11-22 08:33 | Outpatient (CLI) | payer BC ==
--- NOTE | 2018-11-22 09:11 | PRG ---
DATE OF SERVICE: 11/22/2018 HISTORY: Mr. Alexx Lopez is a very pleasant 43-year-old gentleman, who presents to the [facility] Center for evaluation of a wound of the right lateral foot subsequent to incision and drainage for treatment of a right foot abscess with neuropathic ulcer on 09/21/[address] Jani Mehta. At surgery, the patient underwent primary closure of the wound. During the patient's hospital stay, Mr. Lopez was seen in consultation by Infectious Diseases and the patient has received IV antibiotics as per Dr. Huffman. The patient is now receiving p.o. antibiotics as per Infectious Diseases. PHYSICAL EXAMINATION: VITAL SIGNS: Temperature 98.0, pulse 83, blood pressure 170/98. Accu-Chek 168. EXTREMITIES: A wound of the dorsum of the right lateral foot is present, which measures approximately 8.5 x 2.0 cm. No purulent drainage is associated with the wound. A plantar wound is present over the right lateral foot, which still connects with the wound over the dorsum of the right foot. ASSESSMENT AND PLAN: 1. Right lateral foot wounds as described above. As stated above, the patient is receiving p.o. antibiotics as per Dr. Ayo Huffman of Infectious Diseases. The patient previously received IV antibiotics as per Dr. Huffman for osteomyelitis. The patient states he has a followup appointment with Dr. Huffman. The patient has been instructed to keep this followup appointment. The patient also has a followup appointment with Dr. Mehta of Orthopedic Surgery next week. The patient has been instructed to continue dressing changes of Medihoney for the right foot wounds on a daily basis after cleansing and irrigation. Gauze will be utilized as a secondary dressing. The importance of offloading has again been discussed with the patient. The patient understands and is in agreement with the preceding treatment plan. I will see Mr. Lopez again as needed after his followup appointment with Orthopedic Surgery. 2. Diabetes mellitus, the patient's Accu-Chek in clinic today is 168. The patient has been reminded that for optimal wound healing, his blood glucoses should remain below 150. Job ID: [id number]
[2018-11-22] MEDS ORDERED: Sodium Chloride 0.9% 15 ML NEB ONE (18:00)
== END 2018-11-22 08:34 | disposition home or self-care (01) ==
LOC: WCC 08:33
PROVIDERS: ATTEND Family Medicine
DX: S91.301D Unspecified open wound, right foot, subsequent encounter (principal); E11.9 Type 2 diabetes mellitus without complications
CPT/HCPCS: A4218

== ENCOUNTER 2018-12-05 11:36 | Emergency (ER) | payer BC ==
[~2018-12-05 11:36] MED LIST changes: -Heparin 1,000 UNITS/ML VIAL ONE; +ISOVUE-370 76%-LOCM 1 ML ONE
[2018-12-05 12:16] LABS: #Eosinphils 0.1 thou/uL (0.0-0.7); #Lymphocytes 1.8 thou/uL (1.20-3.40); #Monocytes 1.1 thou/uL (0.11-0.59); #Neutrophils 9.6 thou/uL (1.40-6.50); %Basophils 0.2 % (0.0-1.0); %Eosinophils 0.4 % (0.0-10.0); %Lymphocytes 14.1 % (21.0-51.0); %Monocytes 8.6 % (0.0-10.0); %Neutrophils 76.5 % (42.0-75.0); Hemoglobin 13.5 g/dL (14.0-18.0); Mean Corpuscular HGB CONC 33.3 g/dL (32.0-36.0); Mean Corpuscular Hemoglobin 30.1 pg (27.0-31.0); Mean Corpuscular Volume 90.4 fL (78.0-98.0); Mean Platelet Volume 8.8 fL (7.4-10.4); Platelet Count 422 thou/uL (130-400); RBC Distribution Width 13.1 % (11.5-14.5); Red Blood Cell (RBC) Count 4.47 mill/uL (4.70-6.10); White Blood Cell (WBC) Count 12.6 thou/uL (4.8-10.8)
[2018-12-05 12:55] LABS: ALT (SGPT) 21 U/L (8-55); AST (SGOT) 21 U/L (5-34); Albumin 4.2 g/dL (3.5-5.0); Alkaline Phosphatase 102 U/L (40-150); Anion Gap 16 mmol/L (10-20); BUN (Urea Nitrogen) 27 mg/dL (8.9-20.6); Bilirubin, Total 1.3 mg/dL (0.2-1.2); Calc. Creatinine Clearance 0 mL/min (70-130); Carbon Dioxide 22 mmol/L (22-29); Chloride 101 mmol/L (98-107); Estimated GFR-MDRD 78; Globulin 3.9 g/dL (2.4-3.5); Glucose 238 mg/dL (70-105); Potassium 4.5 mmol/L (3.5-5.1); Protein, Total 8.1 g/dL (6.0-8.3); Sodium 134 mmol/L (136-145)
--- NOTE | 2018-12-05 13:00 | RAD ---
PORTABLE CHEST ONE VIEW: 12/05/2018 12:24 p.m. HISTORY: Dyspnea. COMPARISON: 09/21/2018 FINDINGS: There has been interval removal of the left upper extremity PICC line. The heart size is normal. No focal areas of consolidation, pneumothoraces, or pleural effusions are seen. IMPRESSION: No radiographic evidence of acute cardiopulmonary process. POS: [facility]
--- NOTE | 2018-12-05 13:33 | CT ---
CT PULMONARY ANGIOGRAM WITH IV CONTRAST AND 3D POST PROCESSING: HISTORY: A 43-year-old male with dyspnea. FINDINGS: No filling defects are seen in the central pulmonary arteries. The peripheral pulmonary artery branc hes are not satisfactorily evaluated due to inadequate opacification. The thoracic aorta is well opa cified without aneurysm or dissection. No pleural or pericardial effusions are seen. No pneumothora jasiel, lobar consolidation, or lung masses are identified. There are mild degenerative changes in the lung bases. The bony structures are unremarkable. IMPRESSION: No CT evidence of central pulmonary embolism. POS: [facility]
[2018-12-05] MEDS ORDERED: Ketorolac Tromethamine 30 MG/ML VIAL ONE (13:46)
== END 2018-12-05 14:32 | disposition home or self-care (01) ==
LOC: ERS 11:36
DX: B34.9 Viral infection, unspecified (principal); E11.9 Type 2 diabetes mellitus without complications; Z79.84 Long term (current) use of oral hypoglycemic drugs
CPT/HCPCS: 36415; 71045; 71275; 80053; 83605; 84484; 85025; 85379; 87040; 87804; 93005; 96361; 96374; J1885

== ENCOUNTER 2018-12-07 00:12 | Inpatient (IN) | payer BC ==
[2018-12-07 03:14] LABS: Bilirubin Negative (Negative); Blood, Urine Negative (Negative); Clarity CLEAR (Clear); Glucose, Urine (Dipstick) >=1000 mg/dL (Negative); Leukocyte Negative (Negative); Nitrite Negative (Negative); Protein, Urine (Dipstick) 30 mg/dL (Neg-Trace); Urobilinogen 0.2 mg/dL (0.2-1.0); pH, Urine 5.5 (5.0-9.0)
[2018-12-07 03:17] LABS: Bacteria/HPF None Seen HPF (None Seen); Hyaline Casts/LPF 7-10 HYALINE CAST LPF (0-3 Hyaline); Pathc Cast-AUWi Flag 0.95 (0-2.49); RBC/HPF 0-3 HPF (0-3); Squamous Epithelial 0-3 HPF (0-3); WBC/HPF 0-3 HPF (0-3)
[2018-12-07 03:23] LABS: Specific Gravity, Urine 1.046 (1.002-1.036)
[2018-12-07 06:01] VITALS: BMI 27.5
[2018-12-07] MEDS ORDERED: Morphine 4 MG/ML VIAL SLOW IVP PRN (06:09)
[2018-12-07] MEDS ORDERED: Ondansetron ODT 4 MG TAB PO PRN (06:10)
[2018-12-07] MEDS ORDERED: Ondansetron PF 4 MG/2 ML Vial IVP PRN (06:10)
[2018-12-07] MEDS ORDERED: Sodium Chloride 0.9% 1,000 ML IV SCH (06:15)
[2018-12-07] MEDS ORDERED: Dextrose 50% Abboject 50 ML SYRINGE IVP PRN (06:55)
[2018-12-07] MEDS ORDERED: Dextrose 5% in Water 1,000 ML IV PRN (06:55)
[2018-12-07] MEDS ORDERED: Sodium Chloride 0.45% 1,000 ML IV SCH (07:00)
--- NOTE | 2018-12-07 07:27 | HP ---
CHIEF COMPLAINT: Sepsis, pathological fracture of right 5th metatarsal, osteomyelitis. HISTORY OF PRESENT ILLNESS: The patient is a 43-year-old male, who was hospitalized in September for osteomyelitis in his right foot and open nonhealing wound. He was treated with long-term outpatient antibiotics per Dr. Huffman as well as going to wound care. I had not seen him until he came into the office on the day of admission stating that he had been having intermittent fevers for 1-1/2 weeks. His right foot with swelling. He had gone to the emergency room at [place] and told that it was a viral infection and sent home. In my office, it was hot, red, swollen. He was not febrile and there was no streaking. It was felt that he may have mild early sepsis and/or cellulitis of that foot, so he was begun on oral Levaquin 500 once a day. After he left my office, the swelling in his foot became worse. His pain became worse and he went to [facility] for further evaluation. There, he was given 5 L of fluid and resuscitated from what they had determined was early sepsis and transferred to [facility] for further care. He has been begun on cefepime 2 g IV. He was given Toradol for pain and he is feeling a little bit better at this time. On arrival at [facility], his temperature is 100.5 and he has foot pain, which was rated as 6/10, dull and aching, made worse by walking. PAST MEDICAL HISTORY: Includes insulin-dependent diabetic, blood sugar is 185 on the morning of admission. PRIOR SURGICAL HISTORY: Includes the aforementioned foot surgery for incision and drainage and treatment of right foot osteomyelitis. ALLERGIES: TO PENICILLIN. CURRENT MEDICATIONS: Include Janumet that he is to take b.i.d. He had been on insulin but had run out, has not been taking that. He was sent home on Trulicity 1.5 mg subcu every 7 days, and he did not refill that prescription because his insurance was unwilling to help him obtain it. REVIEW OF SYSTEMS: GENERAL: He has been febrile, weak, fatigued with general malaise. HEENT: Denies sores or drainage in eyes, ears, nose, or throat. Pharynx is dry. CHEST: Denies coughing or shortness of breath. CARDIOVASCULAR: Denies palpitations or chest pain. GASTROINTESTINAL: Denies nausea, vomiting, or diarrhea. GENITOURINARY: No blood in urine or stool or dysuria. MUSCULOSKELETAL: Right foot erythema. Pain with walking. Denies drainage. Describes the pain as 6/10. SKIN: Hot and tender to touch in the right foot. NEUROLOGIC: Denies headaches, blurred vision, or trouble with mentation. PHYSICAL EXAMINATION: VITAL SIGNS: At the time of admission, blood pressure was 129/82, pulse 103, temperature 100.5, his respirations are 18. He is 6 feet and 3 inches. Weighs 220 pounds with a BMI of 27.5, O2 sat 97%. GENERAL: This is a well-developed, well-nourished, male, alert, oriented, and cooperative. HEENT: Normocephalic, atraumatic. Pupils are equal, round, and reactive to light. Extraocular muscles are intact. TMs, nares, and pharynx are clear. CHEST: Clear to auscultation. HEART: Regular rate and rhythm. ABDOMEN: Soft and nontender without organomegaly. GENITOURINARY: Deferred. EXTREMITIES: Upper extremities and left lower extremity without clubbing, cyanosis, or edema. Right lower extremity shows open wound with necrotic margins, swollen, tender to touch, hot, red. NEUROLOGIC: Cranial nerves are intact. Sensory exam is intact. Unable to test gait and cerebral function at this time. Mental status is at baseline. DIAGNOSTIC DATA: Lab work thus for from [facility] showed WBCs 9.7, hemoglobin 12.1, hematocrit 35, and platelets at 382. Glucose [id number] 319. Blood cultures are pending. Beta-hydroxybutyrate is 0.4. INR 1.3. CT of the foot shows comminuted avulsion fracture of the 5th metatarsal styloid. Ill-defined soft tissue density subcutaneous, adjacent to the 5th metatarsal fracture could represent a phlegmon or hemorrhage. Nonspecific soft tissue in the subcutaneous fat overlying the calcaneus. Sodium 134, BUN 21, creatinine is 1.03, potassium 4.5, chloride 101, CO2 of 22, calcium 9.4, albumin 3.6, lactic acid 1.3. ASSESSMENT: 1. Pathological fracture, right 5th metatarsal. 2. Sepsis. 3. Probable osteomyelitis of the right foot. 4. Insulin-dependent diabetic, noncompliant with medication. PLAN: Plan will be continuing IV fluid resuscitation. IV antibiotics. Infectious Disease consultation. Surgical consultation and serial re-evaluation. We will maintain him with D5 NS on a sliding scale. He will be kept n.p.o. until it is determined whether he will go to the OR or not. Job ID: [id number]
[2018-12-07] MEDS: Cefepime 2 GM in Sodium Chloride 0.9% 100 ML IVPB SCH ×3 (08:36→23:34)
[2018-12-07] MEDS: Fentanyl 100 MCG/2 ML VIAL SLOW IVP PRN ×3 (08:37→17:09)
[2018-12-07] MEDS ORDERED: Cefepime 2 GM in Sodium Chloride 0.9% 100 ML IVPB SCH (09:00)
[2018-12-07] MEDS: Dextrose 5 %-0.45 % NaCl 1,000 ML IV SCH ×3 (10:07→22:00)
[2018-12-07] MEDS: Insulin Regular 300 UNITS/3 ML VIAL SC PRN ×3 (13:02→22:00)
[2018-12-07] MEDS ORDERED: Ondansetron PF 4 MG/2 ML Vial SLOW IVP PRN (17:54)
[2018-12-07] MEDS: Acetaminophen 325 MG TAB PO PRN (19:01)
--- NOTE | 2018-12-07 21:36 | RAD ---
Portable frontal chest radiograph: 12/07/2018 COMPARISON: 12/05/2018 HISTORY: Shortness of breath FINDINGS: Lungs are clear. Heart and mediastinal contours appear within normal limits. IMPRESSION: No acute findings.
--- NOTE | 2018-12-07 22:30 | CON ---
DATE OF CONSULTATION: 12/07/2018 REASON FOR CONSULTATION: Fever. HISTORY OF PRESENT ILLNESS: A 43-year-old known to us from previous visit when he presented with a history of type 2 diabetes and chronic ulcer bottom aspect of the right lateral foot right behind the fifth MPJ skin site, which had been followed for the past many months. He then subsequently developed worsening inflammatory changes there at the site with swelling which progressed despite IV and oral antimicrobial therapy. I saw him then in September of this year. Impression was early osteomyelitis 5th metatarsal, possible abscess. I believe Dr. Traylor consulted Dr. Mehta and he saw him on September 21, felt that he needed intervention. The operative procedure was reviewed from September 21 and it consisted of incision and drainage of right foot abscess. The ulcer was excised. Large amount of purulent material from the ulcer was removed. The lateral incision had been made over the lateral midfoot beginning of the base of the 5th MTP joint extending to the cuboid area. After that, he continued antimicrobial therapy for protracted period of time. The organisms retrieved included E. coli which was fairly susceptible except for quinolones, streptococcus sanguinis and Finegoldia magna. After that, he resumed wound care and was healing steadily. Still quite a sizable area of wound in the lateral aspect of the midfoot region right side and at the top, there was a dark eschar in place and then he developed recrudescence of fever this week. I saw him in the office and ordered some labs and then eventually ended up in the emergency room twice and was referred to [facility] and admitted. He reportedly had a CT of the foot, but is not clear that he did. I do not see that here, maybe was done elsewhere. A CT angio which showed no evidence of pulmonary embolism. Dr. Mehta has seen the patient is going to intervene and do some I and D tomorrow. Apparently, there was a fracture and the imaging studies may be at the [facility] or at the [facility]. Denies any headaches. No visual symptoms, sore throat, odynophagia, or dysphagia. No cough, sputum production, or chest pain. No abdominal pain or diarrhea. No genitourinary symptoms. No other joint symptoms. PAST MEDICAL HISTORY: Includes type 2 diabetes, neuropathy, chronic wound right midfoot region lateral aspect with surgical debridement by Dr. Mehta recently and then protracted antimicrobial therapy. SOCIAL HISTORY: Never smoker. ALLERGIES: PENICILLIN. FAMILY HISTORY: Noncontributory. CURRENT MEDICATIONS: He is on; 1. Cefepime. 2. Fentanyl. 3. Glucagon. 4. Insulin. PHYSICAL EXAMINATION: VITAL SIGNS: T-max 99.8, blood pressure 148/82, pulse 91, respirations 18, O2 saturation 93%. SKIN: Shows the wound in the lateral foot with this oval shaped wound with dark eschar at the top margin and then granulation tissue covering the bottom two thirds. There is a narrow segment of this wound that extends towards the 5th MPJ. A little bit of erythema not much around that site. No other skin lesions. Lymph Nodes: No lymphadenopathy. HEENT: Ocular movements conjugate. Nasal passages patent. Oral cavity normal. NECK: Supple. No jugular vein distention. LUNGS: Symmetric, clear breath sounds. HEART: S1 and S2, regular rate. No S3 or S4. ABDOMEN: Soft, not distended or tender. No ascites. No bladder distention. EXTREMITIES: Moves extremities with no limitations. Pulses 1+ in dorsalis pedis. NEUROLOGIC: Cognitive function appears to be intact. LABORATORY DATA: White cell count is 12.6, hemoglobin 13.5, platelets 422 with 69% neutrophils. Chemistry with creatinine 1.03, sodium 134, BUN 27, lactic acid 0.8, bilirubin 1.3, transaminases normal, alkaline phosphatase 102, CRP 4.13, albumin 4.2, globulin 3.9. Urinalysis with 0-3 wbc's, pH 5.5. Two sets of blood cultures pending. Influenza A and B was negative. No pneumonia on the chest x-ray and CT angio. ASSESSMENT AND PLAN: Type 2 diabetes with previous ulcer with abscess status post debridement in September, protracted antimicrobial therapy, now with persistence of this area of ulceration and possible complications in the foot with osteomyelitis. Dr. Mehta is going to intervene and I and D the site tomorrow. Obtain cultures and will follow-through from there. Other sites of involvement are not apparent at this time outside the foot after initial workup. Job ID: [id number]
[2018-12-07] MEDS: HYDROcodone/Acetaminophen 5/325 mg Tablet PO PRN (23:35)
[2018-12-08] MEDS: Insulin Regular 300 UNITS/3 ML VIAL SC PRN ×2 (05:57→11:58)
[2018-12-08] MEDS: HYDROcodone/Acetaminophen 5/325 mg Tablet PO PRN ×3 (06:03→23:38)
[2018-12-08] MEDS: Ondansetron ODT 4 MG TAB PO PRN (06:04)
[2018-12-08] MEDS: Dextrose 5 %-0.45 % NaCl 1,000 ML IV SCH ×4 (06:08→22:53)
[2018-12-08 07:55] LABS: #Basophils 0.1 thou/uL (0.0-0.2); #Eosinphils 0.1 thou/uL (0.0-0.7); #Lymphocytes 1.1 thou/uL (1.20-3.40); #Monocytes 0.8 thou/uL (0.11-0.59); #Neutrophils 5.2 thou/uL (1.40-6.50); %Basophils 1.1 % (0.0-1.0); %Eosinophils 0.8 % (0.0-10.0); %Lymphocytes 15.8 % (21.0-51.0); %Neutrophils 71.2 % (42.0-75.0); Hemoglobin 11.6 g/dL (14.0-18.0); Mean Corpuscular HGB CONC 30.5 g/dL (32.0-36.0); Mean Corpuscular Hemoglobin 28.6 pg (27.0-31.0); Mean Platelet Volume 8.8 fL (7.4-10.4); Platelet Count 241 thou/uL (130-400); Red Blood Cell (RBC) Count 4.05 mill/uL (4.70-6.10); White Blood Cell (WBC) Count 7.2 thou/uL (4.8-10.8)
[2018-12-08] MEDS: Cefepime 2 GM in Sodium Chloride 0.9% 100 ML IVPB SCH ×3 (08:09→23:31)
[2018-12-08] MEDS ORDERED: Midazolam HCl 2 mg/2 ml Vial ONE (13:07)
[2018-12-08] MEDS ORDERED: Fentanyl 100 MCG/2 ML VIAL ONE ×2 (13:07→13:44)
[2018-12-08] MEDS ORDERED: Ondansetron HCl/PF 4 MG/2 ML Vial IVP PRN (15:01)
[2018-12-08] MEDS ORDERED: Promethazine HCl 25 MG/ML VIAL SLOW IVP PRN (15:01)
[2018-12-08] MEDS ORDERED: Promethazine HCl 25 MG/ML VIAL IM PRN (15:01)
[2018-12-08] MEDS ORDERED: Ondansetron PF 4 MG/2 ML Vial ONE (15:44)
[2018-12-08] MEDS ORDERED: Lidocaine 1% PF 5 ML VIAL ONE (15:44)
[2018-12-08] MEDS ORDERED: PROPOFOL 200 MG/20 ML VIAL ONE (15:44)
[2018-12-09] MEDS: Insulin Regular 300 UNITS/3 ML VIAL SC PRN ×4 (06:01→20:17)
[2018-12-09] MEDS: Cefepime 2 GM in Sodium Chloride 0.9% 100 ML IVPB SCH ×2 (08:54→16:47)
[2018-12-09] MEDS ORDERED: Loratadine 10 MG TAB PO SCH ×2 (13:15→20:00)
[2018-12-09] MEDS: HYDROcodone/Acetaminophen 5/325 mg Tablet PO PRN ×2 (13:48→19:29)
[2018-12-09] MEDS ORDERED: TRULICITY PATIENT'S HOME MEDICATION SC SCH (14:00)
--- NOTE | 2018-12-09 14:13 | OP ---
DATE OF PROCEDURE: 12/08/2018 PREOPERATIVE DIAGNOSIS: Osteomyelitis, right foot fifth metatarsal. POSTOPERATIVE DIAGNOSIS: Osteomyelitis, right foot fifth metatarsal. PROCEDURE PERFORMED: Irrigation and debridement of right foot with lateral ray amputation. ANESTHESIA: General. COMPLICATIONS: None. CONDITION: Fair. ESTIMATED BLOOD LOSS: 100 mL. DRAINS: None. CULTURE: Tissue sent. TECHNIQUE: Simple stain. DESCRIPTION OF PROCEDURE: The patient was taken to the operating room and placed in supine position. After adequate general anesthesia had been achieved, the patient's right foot and ankle was positioned, prepped and draped in usual sterile fashion. A tourniquet was placed in supramalleolar area, and foot and ankle was elevated and tourniquet inflated prior to incision. The patient had approximately 5 to 6 cm dehiscence area in the lateral midfoot with some draining purulent material surrounding erythema and edema with infected granulation tissue in the central portion. Wound margins were carefully excised along with the abnormal granulation material. The base of the fifth metatarsal had fragmentation evidence of pathologic fracture and deep infection. This was removed sharply extending the dissection through the fifth toe, which was also resected with MTP joint. Plantar flap was then fashioned after copious irrigation. The tourniquet was released. Remaining tissues appeared to be viable. Good healthy bleeding was obtained. After copious irrigation, the vancomycin powder was placed into the depth of the wound of the skin. Plantar skin was approximated dorsally with some 2-0 Prolene. Sterile bulky dressing was applied and the patient was taken to recovery. PROGNOSIS: Fair. We will await culture results. Continue IV antibiotic therapy per Dr. Huffman. Job ID: [id number]
[2018-12-09] MEDS: metFORMIN 500 MG TAB PO SCH (19:30)
[2018-12-09] MEDS: Acetaminophen 325 MG TAB PO PRN (20:17)
[2018-12-10] MEDS: Cefepime 2 GM in Sodium Chloride 0.9% 100 ML IVPB SCH ×3 (00:45→16:11)
[2018-12-10 06:40] LABS: #Eosinphils 0.2 thou/uL (0.0-0.7); #Lymphocytes 1.5 thou/uL (1.20-3.40); #Monocytes 0.6 thou/uL (0.11-0.59); #Neutrophils 3.4 thou/uL (1.40-6.50); %Basophils 0.3 % (0.0-1.0); %Eosinophils 4.1 % (0.0-10.0); %Lymphocytes 26.2 % (21.0-51.0); %Monocytes 10.1 % (0.0-10.0); %Neutrophils 59.2 % (42.0-75.0); Hemoglobin 12.4 g/dL (14.0-18.0); Mean Corpuscular HGB CONC 32.7 g/dL (32.0-36.0); Mean Corpuscular Hemoglobin 29.8 pg (27.0-31.0); Mean Corpuscular Volume 91.2 fL (78.0-98.0); Mean Platelet Volume 8.3 fL (7.4-10.4); Platelet Count 442 thou/uL (130-400); RBC Distribution Width 12.9 % (11.5-14.5); Red Blood Cell (RBC) Count 4.18 mill/uL (4.70-6.10); White Blood Cell (WBC) Count 5.8 thou/uL (4.8-10.8)
[2018-12-10 07:04] LABS: Anion Gap 15 mmol/L (10-20); BUN (Urea Nitrogen) 13 mg/dL (8.9-20.6); Calc. Creatinine Clearance 153 mL/min (70-130); Calcium 9.1 mg/dL (7.8-10.44); Carbon Dioxide 28 mmol/L (22-29); Chloride 95 mmol/L (98-107); Estimated GFR-MDRD Greater than 90; Glucose 213 mg/dL (70-105); Potassium 3.4 mmol/L (3.5-5.1); Sodium 135 mmol/L (136-145)
[2018-12-10] MEDS: metFORMIN 500 MG TAB PO SCH ×2 (09:17→20:17)
[2018-12-10] MEDS: Alogliptin 25 MG TAB PO SCH (09:17)
[2018-12-10] MEDS ORDERED: Loratadine 10 MG TAB PO SCH ×2 (09:30→21:00)
[2018-12-10] MEDS: Insulin Regular 300 UNITS/3 ML VIAL SC PRN ×2 (11:04→16:12)
[2018-12-10] MEDS: HYDROcodone/Acetaminophen 5/325 mg Tablet PO PRN ×2 (12:50→20:17)
[2018-12-10] MEDS ORDERED: guaiFENesin/Dextromethorphan 10 ML UDCUP PO PRN (14:15)
--- NOTE | 2018-12-10 15:46 | PRG ---
DATE OF SERVICE: 12/10/2018 SUBJECTIVE: The patient had an I and D. Dr. Mehta performed amputation of the fifth ray, which was obviously infected. The patient feels better except for this persistent dry cough, has some posterior nasal drip as well. No sore throat. No neck pain. No dyspnea or chest pain. No abdominal pain. OBJECTIVE: VITAL SIGNS: Temperature maximum 99, blood pressure 150/92. GENERAL: Awake, alert, oriented. No distress. HEENT: Ocular movements conjugate. NECK: Supple. No jugular vein distention. LUNGS: Symmetric. Clear breath sounds. HEART: S1 and S2, regular rate. ABDOMEN: Soft. Not distended. EXTREMITIES: Right foot dressing in place, not removed. LABORATORY DATA: White cell count 5.8, hemoglobin 12.4, platelets 442. Sodium 135, creatinine 0.87. Urinalysis was normal. Microbiology with yeast species from the foot sample. The previous cultures from September with E coli, Streptococcus sanguinis, and Finegoldia magna. Pathology is pending. ASSESSMENT AND PLAN: Type-2 diabetes with previous abscess, right lateral foot, which had a surgical debridement. At that time, there is no overt evidence of bone destruction. The MRI, however, showed early evidence of bone involvement. He was treated with protracted IV antimicrobial therapy, the wound was slow in healing and now he has obvious evidence of osteomyelitis with destruction of the fifth metatarsal, status post resection of infected site. We will wait on the pathology and see what the final microbiology shows and then decide on IV versus oral antimicrobial therapy. We will add Diflucan for the time being orally. Job ID: [id number]
[2018-12-10] MEDS ORDERED: Lorazepam 1 MG TAB PO SCH (16:00)
[2018-12-10] MEDS: Ondansetron ODT 4 MG TAB PO PRN (20:16)
[2018-12-10] MEDS: Lisinopril 10 MG TAB PO SCH (20:17)
[2018-12-10] MEDS: Benzonatate 100 MG CAP PO PRN (20:17)
[2018-12-10] MEDS: Acetaminophen 325 MG TAB PO PRN (22:39)
[2018-12-11] MEDS: Cefepime 2 GM in Sodium Chloride 0.9% 100 ML IVPB SCH ×3 (00:32→16:11)
[2018-12-11] MEDS ORDERED: Loratadine 10 MG TAB PO SCH (09:00)
[2018-12-11] MEDS ORDERED: Fluticasone Propionate Nasal Spray 16 gm Bottle NASAL SCH (09:00)
[2018-12-11] MEDS ORDERED: Fluconazole 100 MG TAB PO SCH (09:00)
[2018-12-11] MEDS ORDERED: Lorazepam 1 MG TAB PO PRN (09:10)
[2018-12-11] MEDS: metFORMIN 500 MG TAB PO SCH (09:11)
[2018-12-11] MEDS: Alogliptin 25 MG TAB PO SCH (09:11)
[2018-12-11] MEDS: Lisinopril 10 MG TAB PO SCH (09:11)
[2018-12-11] MEDS: Benzonatate 100 MG CAP PO PRN ×2 (09:16→17:21)
[2018-12-11] MEDS: Insulin Regular 300 UNITS/3 ML VIAL SC PRN ×2 (11:53→17:51)
[2018-12-11] MEDS: HYDROcodone/Acetaminophen 5/325 mg Tablet PO PRN (17:17)
[2018-12-11] MEDS: Ondansetron ODT 4 MG TAB PO PRN (19:42)
[2018-12-11 20:08] VITALS: BP 157/105; TEMP 97.9
--- NOTE | 2018-12-13 06:29 | PQF ---
[employer] Winform Viewer ANIKET HUTTON RICARDO S MD [id number] [id number] CLINICAL DOCUMENTATION CLARIFICATION FORM: POST DISCHARGE Addendum to original discharge summary date: ____ Late entry note date: __ DATE: 12/13/2018 ATTN: Ayo Rosales Please exercise your independent, professional judgment in responding to the clarification form. Clinical indicators are provided on the bottom of this form for your review Can you please specify whether Sepsis is ruled in or ruled out during this encounter? Sepsis [ ] Ruled in diagnosis [ ] Continue to treat [ ] Resolved [ ] Ruled out diagnosis [ ] Cannot rule out diagnosis [ ] Other diagnosis [ ] Unable to determine For continuity of documentation, please document condition throughout progress notes and discharge summary. Thank You. CLINICAL INDICATORS - SIGNS / SYMPTOMS / LABS H and P pg.1 12/07- Chief complaint: sepsis , pathological fracture of right 5th metatarsal osteomyelitis H and P pg.1 12/07-- "He may have mild early sepsis and /or cellulitis of that foot, so he was begun on oral levaquin 500 once a day. H and P pg.2 12/07- Vital signs BP 129/82, pulse 103, Temp 100.5, RR 18 H and P pg.1 12/07-- WBC 9.7 Microbiology 12/08 - Foot wound bacterial culture presumptive isabella albicans RISK FACTORS Osteomyelitis, right foot fifth metatarsal- OP Report pg.1 Diabetes mellitus- H and P pg.1 TREATMENTS IV fluids- MAR Infectious Consult- Dr. Huffman Wound Culture- Microbiology Irrigation and Debridement of right foot with lateral ray amputation- Operative report Cefepime 2gm IV- MAR Vancomycin 1gm IV- MAR (This form is maintained as a part of the permanent medical record) 2014 [employer]. All Rights Reserved [email or web address] [not provided] MTDD
== END 2018-12-11 19:55 | disposition home or self-care (01) | DRG 617 ==
LOC: ERS 00:12 → T4-A 03:48 → OBSVTOIN 09:16
PROVIDERS: ADMIT Specialist; ATTEND Specialist
PROC: 0Y6X0Z0 Detachment at Right 5th Toe, Complete, Open Approach (ICD-10-PCS; principal; 2018-12-08)
DX: E11.69 Type 2 diabetes mellitus with other specified complication (principal); M86.171 Other acute osteomyelitis, right ankle and foot; M84.477A Pathological fracture, right toe(s), initial encounter for fracture; E11.40 Type 2 diabetes mellitus with diabetic neuropathy, unspecified; Z79.4 Long term (current) use of insulin; Z91.14 Patient's other noncompliance with medication regimen; Z88.8 Allergy status to other drugs, medicaments and biological substances; Z79.899 Other long term (current) drug therapy; E11.621 Type 2 diabetes mellitus with foot ulcer; L97.519 Non-pressure chronic ulcer of other part of right foot with unspecified severity
CPT/HCPCS: 36415; 36416; 71045; 71275; 80048; 80053; 81003; 81015; 83605; 84484; 85025; 85379; 87040; 87070; 87086; 87205; 87804; 88305; 88311; 93005; 93010; 96361; 96374; 99284; J0692; J1815; J1885; J2001; J2250; J2405; J2704; J3010; J3370; J3490; Q0162; Q9966